=== PATIENT | male | born 1945 | race Caucasian/White ===

== ENCOUNTER 2017-04-23 08:32 | Observation (INO) ==
[2017-04-23] MEDS ORDERED: Aspirin 81 MG TAB.CHEW PO ONE (08:56)
--- NOTE | 2017-04-23 09:12 | Emergency Department Note ---
Disposition Clinical Impression: Dyspnea on exertion, Hypoxia, ACS (acute coronary syndrome) Disposition: Admitted As Inpatient Condition: Good Time of Disposition: 10:14 General Adult HPI - General Chief complaint: ED Shortness of Breath/Dyspnea Stated complaint: SOB Time Seen by Provider: 04/23/17 08:43 Source: patient Limitations: no limitations Nursing Notes Reviewed: Yes Vital Signs Reviewed: Yes - History of Present Illness HPI Narrative: 72-year-old male presenting to the emergency department with chief complaint of shortness of breath. Patient has a significant past medical history of CHF and had a pacemaker placed mid February. Patient states this morning when he woke up he noticed his oxygen saturation to be 90%. He is normal as around 98%. Patient does not wear oxygen at home but does wear CPAP overnight. Patient is compliant with this. Patient has history of A. fib with RVR and multiple ablations and cardioversions. A pacemaker was placed due to decreased ejection fraction of approximately 35%. Patient currently on Xarelto. Patient does complain of left-sided incisional pain that comes and goes. This pain does not radiate. Patient states while walking into the emergency department waiting room he became dyspneic. This is a new symptom that has not occurred in the past. Pain Scale: 8 - Related Data Home Medications Medication Instructions Recorded Confirmed Allopurinol [Zyloprim] 100 mg PO BID 05/01/15 04/23/17 Aspirin [Adult Low Dose Aspirin EC] 81 mg PO QAM 05/01/15 04/23/17 Bimatoprost [Lumigan] 1 drop BOTH EYES DAILY 05/01/15 04/23/17 Brimonidine Tartrate [Alphagan P] 1 drop BOTH EYES TID 05/01/15 04/23/17 Dorzolamide [Trusopt] 1 drop BOTH EYES TID 05/01/15 04/23/17 Furosemide [Lasix] 40 mg PO BID 05/01/15 04/23/17 Losartan [Cozaar] 100 mg PO DAILY 05/01/15 04/23/17 Metformin [Glucophage] 1,000 mg PO BID 05/01/15 04/23/17 Multivitamin [Multi-Day Vitamins] 1 tab PO DAILY 05/01/15 04/23/17 Potassium Chloride [Klor-Con 10 meq PO DAILY 05/01/15 04/23/17 Sprinkle] Simvastatin [Zocor] 20 mg PO HS 05/01/15 04/23/17 Metoprolol XL (24 HR) Succ [Toprol 50 mg PO QAM 07/21/15 04/23/17 Xl] Previous Rx's Medication Instructions Recorded Rivaroxaban [Xarelto] 20 mg PO DAILY #0 03/08/17 Allergies Allergy/AdvReac Type Severity Reaction Status Date / Time promethazine [From Phenergan] Allergy Intermediate Rash Verified 04/23/17 10:13 All systems ED: reviewed and negative except as stated. Constitutional: Reports: weakness. Denies: fever, chills Eyes: Reports: as per HPI ENT ED: Reports: as per HPI Cardiovascular: Reports: dyspnea on exertion, paroxysmal nocturnal dyspnea. Denies: chest pain, palpitations Respiratory: Reports: dyspnea. Denies: cough, wheezes, hemoptysis Gastrointestinal: Reports: abdominal pain. Denies: nausea, vomiting Genitourinary: Reports: as per HPI Musculoskeletal: Reports: as per HPI Integumentary: Denies: rash, lesions Neurological: Reports: as per HPI Psychiatric: Reports: as per HPI Endocrine: Reports: fatigue Hematological/Lymphatic: Reports: as per HPI Allergic/Immunologic: Reports: as per HPI Past Medical History - Past Medical History Attestation: Yes The following information was validated with the patient. Medical history: Reports: arthritis, atrial fibrillation, cardiomyopathy, CHF, diabetes, glaucoma, hyperlipidemia, hypertension, SVT, other Surgical history: Reports: cholecystectomy, other Psychiatric history: Reports: no psych history - Social History Smoking Status: Former smoker Smokeless Tobacco Status: No Alcohol use: Reports: none Drug use: Reports: none Physical Exam - General Limitations: no limitations General appearance: alert, in no apparent distress - Head Head exam: atraumatic, normocephalic - Eye Eye exam: Present: normal appearance - Chest Chest inspection: Present: normal inspection, symmetric chest wall rise, other ( 2 cm long well-healed incisional site noted on the left anterior chest). Absent : tenderness - Respiratory Respiratory exam: Present: normal lung sounds bilaterally. Absent: respiratory distress, wheezes - Cardiovascular Cardiovascular exam: Present: regular rate, normal heart sounds - Abdominal Exam Abdominal exam: Present: soft, Non-Tender. Absent: distention, guarding, rebound - Extremities Exam Extremities exam: Present: normal inspection, full ROM. Absent: pedal edema - Neurological Exam Neurological exam: Present: alert, oriented X3 - Psychiatric Psychiatric exam: Present: normal affect, normal mood - Skin Skin exam: Present: warm, intact Course Course Narrative: 72-year-old male presenting to the emergency department for chief complain of exertional dyspnea. On exam patient has oxygen saturations in the low 90s. According to the patient has normal is 98% or higher. Patient recently had a pacemaker placed in mid February. It was placed for decreased ejection fraction. Patient also has a strong history of A. fib with RVR. Chest pain workup was ordered. We will determine disposition and plan all results returned. Patient currently stable in the room and no fever at this time. - Reevaluation(s) Reevaluation #1: All the patient's lab work has returned and is within normal limits. Due to his heart score being 4 we will admit the patient at this time. Patient still currently stable in the room. Stable vital signs and mild hypoxia oxygen saturation are 94%. Time: 09:59 Reevaluation #2: Patient accepted by the hospitalist aRmiro Oro. Time: 10:14 Vital Signs Temperature 0 F L 04/23/17 08:34 Pulse Rate 81 04/23/17 08:34 Respiratory Rate 18 04/23/17 08:34 Blood Pressure 139/92 04/23/17 08:34 O2 Sat by Pulse Oximetry 93 04/23/17 08:34 Temperature 98.2 F 04/23/17 09:23 Pulse Rate 77 04/23/17 10:12 Respiratory Rate 18 04/23/17 10:24 Blood Pressure 136/103 04/23/17 10:24 O2 Sat by Pulse Oximetry 93 04/23/17 10:12 Oxygen Delivery Oxygen Delivery Nasal Cannula Medical Decision Making - Medical Records Medical records reviewed: Yes I reviewed the patient's medical records. - Lab Data Lab results reviewed: Yes I reviewed the patient's lab results. Result diagrams: 04/23/17 09:17 04/23/17 09: Lab Results 04/23/17 04/23/17 04/23/17 Range/Units : 09: 09:17 WBC 9.6 (4.3-11.1) K/mcL RBC 4.13 L (4.19-5.50) M/mcL Hgb 12.0 L (12.9-16.9) g/dL Hct 38.3 (37.5-50.1) % MCV 92.7 (83.0-100.0) fL MCH 29.1 (28.0-33.3) pg MCHC 31.3 L (31.6-35.5) g/dL RDW 16.4 H (11.5-14.5) % Plt Count 198 (140-400) K/mcL MPV 10.5 (9.4-12.4) fL Immature Gran % 0.4 (0-4) % Seg Neutrophils % 80.9 % Lymphocytes % 9.1 % Monocytes % 6.8 % Eosinophils % 2.3 % Basophils % 0.5 % Neutrophils # 7.7 (1.6-8.9) K/mcL Lymphocytes # 0.9 (0.6-4.6) K/mcL Monocytes # 0.7 (0.0-1.3) K/mcL Eosinophils # 0.2 (0.0-0.6) K/mcL Basophils # 0.1 (0.0-0.2) K/mcL Immature Plt Fraction 3.8 (1.1-6.1) % Sodium 140 (136-145) mEq/L Potassium 3.7 (3.5-4.5) mEq/L Chloride 104 (98-109) mEq/L Carbon Dioxide 27 (19-29) mEq/L BUN 20 (8-26) mg/dL Creatinine 1.08 (0.72-1.25) mg/dL Est GFR ( Amer) > 60 (> 60) Est GFR (Non-Af Amer) > 60 (> 60) BUN/Creatinine Ratio 19 (6-26) Glucose 116 H (70-99) mg/dL Calculated Osmolality 294 (280-300) Calcium 9.0 (8.6-10.8) mg/dL Troponin I 0.01 (0-0.03) ng/mL - Radiology Data Radiology results reviewed: Yes I reviewed the patient's radiology results. - EKG Data EKG #1 EKG attestation: Yes I reviewed and interpreted this EKG. EKG results narrative: 89 bpm. Normal axis. QRS 113, QTC 440. Sinus rhythm with occasional premature beats Q wave noted in lead III. Non-specific ST-T changes. Compared to prior EKG completed on 03/07/17 with no new acute changes.
[2017-04-23 09:25] LABS: Basophils # 0.1 K/mcL (0.0-0.2); Basophils % 0.5 %; Eosinophils # 0.2 K/mcL (0.0-0.6); Eosinophils % 2.3 %; Hematocrit 38.3 % (37.5-50.1); Immature Granulocytes % 0.4 % (0-4); Immature Platelets 3.8 % (1.1-6.1); Lymphocytes # 0.9 K/mcL (0.6-4.6); Lymphocytes % 9.1 %; Mean Corpuscular HGB Conc 31.3 g/dL (31.6-35.5); Mean Corpuscular Hemoglobin 29.1 pg (28.0-33.3); Mean Corpuscular Volume 92.7 fL (83.0-100.0); Mean Platelet Volume 10.5 fL (9.4-12.4); Monocytes # 0.7 K/mcL (0.0-1.3); Monocytes % 6.8 %; Neutrophils # 7.7 K/mcL (1.6-8.9); Platelet Count 198 K/mcL (140-400); Red Blood Count 4.13 M/mcL (4.19-5.50); Red Cell Distribution Width 16.4 % (11.5-14.5); Segmented Neutrophils % 80.9 %
[2017-04-23 09:38] LABS: BUN/Creatinine Ratio 19 (6-26); Blood Urea Nitrogen 20 mg/dL (8-26); Carbon Dioxide 27 mEq/L (19-29); Chloride 104 mEq/L (98-109); Glucose 116 mg/dL (70-99); Osmolality,Calculated 294 (280-300); Potassium 3.7 mEq/L (3.5-4.5); Sodium 140 mEq/L (136-145); eGFR For African Americans > 60 (> 60); eGFR For Non-African Americans > 60 (> 60)
--- NOTE | 2017-04-23 10:29 | Emergency Department Note ---
START Narrative - START START: I examined this patient and my medical decision-making was reviewed with the emergency medicine resident. I agree with the documented findings, disposition and treatment plan as described except to the extent set forth below. Patient seen with emergency medicine resident Dr. Suki Hua, Please see a copy of his note for details of the H&P, ED evaluation, management and disposition. I have independently evaluated the patient and confirmed appropriate portions of the history and physical exam. Briefly: 72-year-old male history of atrial fibrillation AICD placed in February at [facility] secondary to low ejection fraction approximately 35%. Because the emergency department with no exertional dyspnea or dyspnea on exertion and fatigue. Chest is clear no pedal edema EKG shows sinus rhythm with occasional premature beats noted ischemic changes compared to old EKG. Chemistry panel CBC within normal limits troponin negative chest x- ray read as mild cardiomegaly. Due to the new-onset of the dyspnea on exertion acute coronary syndrome is still a differential patient will be admitted patient accepted by hospitalist provided 30 minutes critical care service for this patient.
[2017-04-23] MEDS ORDERED: Acetaminophen 325 MG TABLET PO PRN (11:51)
[2017-04-23] MEDS ORDERED: *HR* Morphine 2 MG/ML SYRINGE IVP PRN (11:51)
[2017-04-23] MEDS ORDERED: Ondansetron 4 MG/2 ML VIAL IVP PRN (11:51)
[2017-04-23] MEDS ORDERED: Naloxone 0.4 MG/ML INJ IVP PRN (11:51)
[2017-04-23] MEDS ORDERED: *HR* HYDROcodone/Acet 5/325 mg TABLET PO PRN (11:51)
[2017-04-23] MEDS ORDERED: Furosemide 40 MG/4 ML VIAL IVP ONE (11:55)
[2017-04-23] MEDS ORDERED: D5% in Water 1,000 ML IVC PRN (12:02)
[2017-04-23] MEDS ORDERED: *HR* Dextrose 50 % in Water (Syg) 50 ML SYRINGE IVP PRN (12:02)
[2017-04-23] MEDS ORDERED: Dextrose Gel 15 GM PO PRN ×2 (12:02)
[2017-04-23] MEDS ORDERED: Ipratropium/Albuterol Neb 3 ML IH PRN (12:04)
[2017-04-23] MEDS: (Bimatoprost [Lumigan] 1 DROP) OP SCH (12:39)
[2017-04-23] MEDS: Pantoprazole 40 MG VIAL IVP SCH (12:40)
[2017-04-23] MEDS: Metoprolol XL (24 HR) Succ 50 MG TAB.ER.24H PO SCH (12:40)
[2017-04-23] MEDS: *HR* Rivaroxaban 10 MG TABLET PO SCH (12:40)
[2017-04-23] MEDS: Multivit/Ca/Min/Fe/FA 1 TAB TABLET PO SCH (12:40)
[2017-04-23] MEDS: Dorzolamide OPTH 10 ML BOTTLE BOTH EYES SCH ×2 (15:10→19:49)
--- NOTE | 2017-04-23 16:02 | Internal Med History&Physical ---
<SimaRamiro holt - Last Filed: 04/23/17 16:46> Date of Encounter: 04/23/17 Time of Encounter: 10:30 Assessment and Plan (1) CHF exacerbation Current visit: Yes Status: Acute Patient presents with SOB and dyspnea most likely due to acute exacerbation of CHF. Pedal edema present bilaterally in LEs. 40 mg IVP lasix ordered. 1.5L daily fluid restriction. Supplemental O2 with titration if SpO2 <92% and continuous SpO2 monitoring. Continuous cardiac telemetry. Monitor I&O and daily weight. DuoNebs Q6 PRN. Monitor patient's cardiac and respiratory status closely. Qualifiers: Congestive heart failure type: unspecified congestive heart failure type Qualified Code(s): I50.9 - Heart failure, unspecified (2) Dyspnea on exertion Current visit: Yes Status: Acute Patient presents with acute SOB and dyspnea with exertion that he reports as transient. Denies hx of DVT/PE. Most likely exacerbation of CHF. Supplemental O2 with titration and continuous SpO2 monitoring. DuoNebs Q6 PRN. CPAP at night. 1.5L daily fluid restriction. (3) Glaucoma Current visit: Yes Status: Chronic Hx of chronic glaucoma. Continue Lumigan, Alphagan, and Trusopt drops daily as prescribed. Qualifiers: Glaucoma type: unspecified Laterality: unspecified laterality Qualified Code(s): H40.9 - Unspecified glaucoma (4) HLD (hyperlipidemia) Current visit: Yes Status: Chronic Hx of chronic HLD. Lipid panel ordered in a.m. labs. Continue simvastatin. Qualifiers: Hyperlipidemia type: pure hypercholesterolemia Qualified Code(s): E78.00 - Pure hypercholesterolemia, unspecified; E78.0 - Pure hypercholesterolemia (5) HTN (hypertension) Current visit: Yes Status: Chronic Hx of chronic HTN. Monitor patient and VS and continue Cozaar and metoprolol. Qualifiers: Hypertension type: essential hypertension Qualified Code(s): I10 - Essential (primary) hypertension (6) Atrial fibrillation Current visit: Yes Status: Chronic Hx of chronic atrial fibrillation w/wo RVR. Currently stable. Patient had AICD placement on 03/07/17. Continuous cardiac telemetry. Qualifiers: Atrial fibrillation type: chronic Qualified Code(s): I48.2 - Chronic atrial fibrillation (7) 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 Current visit: Yes Status: Chronic Hx of chronic diabetes controlled with oral anti-hyperglycemic medications. Hold oral meds and administer low-dose correction sliding scale insulin and hypoglycemic protocol. BG monitoring ACHS. A1c ordered in a.m. labs. 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 Monitor for signs of bleeding. Internal Medicine - H&P: HPI Chief complaint: SOB/Dyspnea Admitted From: Emergency Dept Plans for Post Hospital Care: Home History of present illness: Mr. Palafox is a 72 year old male with medical history of arthritis, atrial fibrillation, cardiomyopathy, CHF, diabetes controlled with oral antihyperglycemic medications, glaucoma, HLD, HTN, and SVT presents from the ED with chief complaint of shortness of breath and dyspnea for the past day. Patient states O2 is usually 98% but today was 90%. He states he uses CPAP but no regular home O2. Hx of atrial fibrillation with multiple ablations and cardioversions. Pacemaker/AICD placed on 03/07/17. LVEF was 35% at time of placement. Patient is currently anticoagulated on Xarelto. Patient reports transient SOB and dyspnea but denies chest pain, palpitations, changes in vision , weakness, fatigue, numbness, tingling, recent illness, hx of DVT/PE, fever, chills, abdominal pain, unusual bleeding, dizziness, lightheadedness, nausea, vomiting, pre-syncope, or syncope. On admission, patient's vital signs include temperature 98.2 F, heart rate of 81 bpm, respiratory rate of 18, BP of 139/92, and SPO2 93% on 2 L nasal cannula. Pertinent abnormal labs include RBC of 4.13 , Hgb 12.0, glucose of 116. Initial troponin 0.01. 2-View CXR today shows no acute abnormality, infiltrate, consolidation, pneumothorax, or pleural effusion. EKG today shows normal axis with sinus rhythm with occasional premature beats Q-wave noted in lead III. Non-specific T-wave changes. No acute changes from EKG on 03/07/17. Upon assessment, patient is alert and oriented 3 and states he is not experiencing shortness of breath at this time. Heart rate is RRR. Lungs are clear bilaterally to auscultation. Mr. Palafox is at high risk for further morbidity due to current symptoms, hx of atrial fibrillation, history of other risk factors and will be placed as observation status. Time spent with patient and family >40 minutes. Past Med Surg Social Fam HX - Past Medical History Source: patient, old records reviewed, obtained from family Medical history: arthritis, atrial fibrillation, cardiomyopathy, CHF, diabetes, glaucoma, hyperlipidemia, hypertension, SVT, other Psychiatric history: no psych history - Past Surgical History Surgical History: cholecystectomy, other - Social History Smoking Status: Former smoker Packs per day: 07/26 PPD - reports quitting 53 years ago Smokeless Tobacco Status: No Alcohol use: none Drug use: none Current living situation: Home Activity Level: Independent ambulation Recent Out of Country Travel Within the Last 8 Weeks: No Exposure or Possible Exposure to Illness During Travel: No - Family History Mother Adopted: No Race: Family Member Ethnicity: Non- Living Status: Age at : 54 Cause of : NH Hx Family Cardiac Disorders: Yes (NH, HTN, HD) Father Race: Family Member Ethnicity: Non- Living Status: Age at : 65 Cause of : Leukemia Hx Family Cancer: Yes (Leukemia) Brother Race: Family Member Ethnicity: Non- Living Status: Age at : 29 Cause of : Complications from flu Internal Medicine - H&P: Meds Allopurinol [Zyloprim] 100 mg PO BID 05/01/15 [History] Aspirin [Adult Low Dose Aspirin EC] 81 mg PO QAM 05/01/15 [History] Bimatoprost [Lumigan] 1 drop BOTH EYES DAILY 05/01/15 [History] Brimonidine Tartrate [Alphagan P] 1 drop BOTH EYES TID 05/01/15 [History] Dorzolamide [Trusopt] 1 drop BOTH EYES TID 05/01/15 [History] Furosemide [Lasix] 40 mg PO BID 05/01/15 [History] Losartan [Cozaar] 100 mg PO DAILY 05/01/15 [History] Metformin [Glucophage] 1,000 mg PO BID 05/01/15 [History] Multivitamin [Multi-Day Vitamins] 1 tab PO DAILY 05/01/15 [History] Potassium Chloride [Klor-Con Sprinkle] 10 meq PO DAILY 05/01/15 [History] Simvastatin [Zocor] 20 mg PO HS 05/01/15 [History] Metoprolol XL (24 HR) Succ [Toprol Xl] 50 mg PO QAM 07/21/15 [History] Rivaroxaban [Xarelto] 20 mg PO DAILY #0 03/08/17 [Rx] 3 Allergy/AdvReac Type Severity Reaction Status Date / Time promethazine [From Phenergan] Allergy Intermediate Rash Verified 04/23/17 10:13 All Systems PM: A 10-system review of systems was performed and is negative for pertinent findings except as documented above in the HPI. - Constitutional Constitutional: no chills, no fever(s), no night sweats - EENT Eyes: no change in vision, no discharge, no pain, no photophobia Ears: no ear discharge, no ear pain, no tinnitus Nose, mouth and throat: no dysphagia, no nasal discharge, no neck pain, no sore throat - Breasts Breasts: as per HPI - Cardiovascular Cardiovascular ROS IM: as per HPI, dyspnea, dyspnea on exertion, no chest pain, no diaphoresis, no lightheadedness, no palpitations, no syncope - Respiratory Respiratory: as per HPI, dyspnea, dyspnea on exertion - Gastrointestinal Gastrointestinal: no abdominal pain, no diarrhea, no hematemesis, no hematochezia, no melena, no nausea, no vomiting - Genitourinary Genitourinary ROS male: as per HPI - Musculoskeletal Musculoskeletal ROS IM: no numbness, no tingling - Integumentary Integumentary IM: no rash, no unusual bruising - Neurological Neurological ROS: no confusion, no convulsions, no focal weakness, no numbness, no tingling, no tremor(s) - Psychiatric Psychiatric: as per HPI - Endocrine Endocrine IM: as per HPI - Hematologic/Lymphatic Hematologic/Lymphatic: no easy bruising - Allergic/Immunologic Allergic/Immunologic: as per HPI - Constitutional Vitals: Temp Pulse Resp BP Pulse Ox 97.9 F 64 12 107/76 97 04/23/17 15:53 04/23/17 15:53 04/23/17 15:53 04/23/17 15:53 04/23/17 15:53 General appearance: Present: cooperative, A&O X 3, pleasant, no acute distress, obese, answers questions appropriately - Head Head exam: Present: atraumatic, normocephalic - Eye Eye exam: Present: PERRL, conjuntiva pink, sclera anicteric Pupils: Present: PERRL - ENT ENT exam: Present: normal exam, normal external ear exam - Neck Neck exam general surgery: Present: supple, trachea midline. Absent: lymphadenopathy - Respiratory Respiratory exam: Present: CTAB. Absent: accessory muscle use, rales, rhonchi, wheezes - Cardiovascular Cardiovascular exam: Present: RRR, +S1, +S2. Absent: diastolic murmur, gallop, rubs, systolic murmur - GI/Abdominal GI/Abdominal exam: Present: normal bowel sounds, soft, no peritoneal signs. Absent: distended, tenderness - Rectal Rectal exam: Present: deferred - Additional comments: exam deferred. - Extremities Exam Extremities exam: Present: warm, radial pulses palpable and symmetrical. Absent : calf tenderness, cyanotic, pedal edema - Back Exam Back exam: Present: normal inspection - Neurological Exam Neurological exam: Present: CN II-XII intact, oriented X3, no focal deficits. Absent: pronater drift, facial droop, speech deficit - Psychiatric Psychiatric exam: Present: normal affect, normal mood - Skin Skin exam: Present: dry, intact Internal Med - H&P Results - Labs CBC & Chem 7: 04/23/17 09:17 04/23/17 09:17 Labs: Cardiac Enzymes 04/23/17 Range/Units 15:08 Troponin I 0.02 (0-0.03) ng/mL - EKG Data EKG shows normal: sinus rhythm - EKG Data When compared to previous EKG: there is no significant change EKG comments: 04/23/17 16:23 89 bpm. Normal axis. QRS 113, QTC 440. Sinus rhythm with occasional premature beats Q wave noted in lead III. Non-specific ST-T changes. Compared to prior EKG completed on 03/07/17 with no new acute changes. - Diagnostic Studies Chest x-ray Additional comments: Impressions Chest X-Ray 04/23/17 09:13 IMPRESSION: No acute abnormality. D/ / Az Rosales MD / Az Rosales MD Interpreting Provider: Az Rosales MD <Jan Cox - Last Filed: 04/23/17 17:00> Date of Encounter: 04/23/17 Assessment and Plan (1) Acute respiratory failure with hypoxia Current visit: Yes Status: Acute (2) CHF exacerbation Current visit: Yes Status: Acute Qualifiers: Congestive heart failure type: systolic Qualified Code(s): I50.23 - Acute on chronic systolic (congestive) heart failure Internal Medicine - H&P: HPI History of present illness: Mr. Palafox is a 72 year old male All Systems PM: A 10-system review of systems was performed and is negative for pertinent findings except as documented above in the HPI. - Constitutional Vitals: Temp Pulse Resp BP Pulse Ox 97.9 F 64 12 107/76 97 04/23/17 15:53 04/23/17 15:53 04/23/17 15:53 04/23/17 15:53 04/23/17 15:53 Internal Med - H&P Results - Labs CBC & Chem 7: 04/23/17 09:17 04/23/17 09:17 Labs: Cardiac Enzymes 04/23/17 Range/Units 15:08 Troponin I 0.02 (0-0.03) ng/mL - Attending Attestation I have personally performed a face to face evaluation on this patient. I have reviewed and agree with the care plan. History and Exam by me shows: 72 y/o male with chronic systolic heart failure and recent AICD placement in February presented to ED with increasing dyspnea and weight gain. Unable to sleep at night due to dyspnea. No CP. No fever or chills. Hx of a fib with multiple ablations. Currently feeling better after receiving IV Lasix. Exam Alert. Comfortable in chair Mucus membranes moist Heart irreg currently. Lungs with bibasilar rales Abd soft Edema present I/P 1. Acute hypoxic resp failure related to exac CHF 2. Acute ecac systolic CHF 3. AICD Interrogate device CPAP at night as at home Diurese If stable anticipate d/c tomorrow.
--- NOTE | 2017-04-23 16:06 | Event Note ---
Date of Encounter: 04/23/17 Time of Encounter: 15:30 - Cardiology Event Note [employer] single chamber ICD device interrogation with normal functioning device. Increased thoracic impendence noted. One episode of non-sustained ventricular tachycardia noted 04/17/17, lasted 3 seconds. No treatments delivered. Results communicated to .
[2017-04-23] MEDS: Insulin LISPRO 300 UNITS/3 ML VIAL SQ SCH (16:42)
[2017-04-23] MEDS ORDERED: Insulin LISPRO 300 UNITS/3 ML VIAL SQ SCH (21:00)
[2017-04-24 04:32] LABS: Basophils # 0.1 K/mcL (0.0-0.2); Basophils % 0.6 %; Eosinophils # 0.6 K/mcL (0.0-0.6); Eosinophils % 7.9 %; Hematocrit 36.3 % (37.5-50.1); Hemoglobin 11.3 g/dL (12.9-16.9); Immature Granulocytes % 0.5 % (0-4); Lymphocytes % 12.9 %; Mean Corpuscular HGB Conc 31.1 g/dL (31.6-35.5); Mean Corpuscular Hemoglobin 28.7 pg (28.0-33.3); Mean Corpuscular Volume 92.1 fL (83.0-100.0); Mean Platelet Volume 10.8 fL (9.4-12.4); Monocytes # 0.6 K/mcL (0.0-1.3); Monocytes % 7.5 %; Neutrophils # 5.5 K/mcL (1.6-8.9); Platelet Count 206 K/mcL (140-400); Red Blood Count 3.94 M/mcL (4.19-5.50); Red Cell Distribution Width 16.3 % (11.5-14.5); Segmented Neutrophils % 70.6 %
[2017-04-24 04:35] LABS: INR 3.2; Prothrombin Time 34.8 Seconds (9.4-12.1)
[2017-04-24 04:37] LABS: Activated Partial Thrombo Time 40.4 Seconds (26.0-36.0)
[2017-04-24 04:40] LABS: Hemoglobin A1C 5.4 %
[2017-04-24 04:44] LABS: Alanine Aminotransferase 13 Units/L (0-55); Albumin 3.7 g/dL (3.5-5.0); Albumin/Globulin Ratio 1.2 (1.1-2.2); Alkaline Phosphatase 59 Units/L (38-126); Aspartate Amino Transferase 21 Units/L (5-34); BUN/Creatinine Ratio 21 (6-26); Bilirubin,Total 2.5 mg/dL (0.2-1.2); Blood Urea Nitrogen 25 mg/dL (8-26); Calcium 8.8 mg/dL (8.6-10.8); Carbon Dioxide 27 mEq/L (19-29); Chloride 104 mEq/L (98-109); Chol/HDL Ratio 3.9 (0-4.9); Cholesterol 81 mg/dL (< 200); Globulin 3.2 g/dL (2.4-3.5); Glucose 112 mg/dL (70-99); HDL Cholesterol 21 mg/dL (40-59); LDL Cholesterol,Calculated 49 mg/dL (0-99); Magnesium 2.2 mg/dL (1.6-2.6); Osmolality,Calculated 295 (280-300); Potassium 3.8 mEq/L (3.5-4.5); Sodium 140 mEq/L (136-145); Total Protein 6.9 g/dL (6.0-8.3); Triglycerides 54 mg/dL (< 150); eGFR For African Americans > 60 (> 60); eGFR For Non-African Americans > 60 (> 60)
[2017-04-24] MEDS: Insulin LISPRO 300 UNITS/3 ML VIAL SQ SCH ×2 (08:24→11:32)
[2017-04-24] MEDS: Pantoprazole 40 MG VIAL IVP SCH (08:28)
[2017-04-24] MEDS: *HR* Rivaroxaban 10 MG TABLET PO SCH (08:28)
[2017-04-24] MEDS: Metoprolol XL (24 HR) Succ 50 MG TAB.ER.24H PO SCH (08:28)
[2017-04-24] MEDS: Multivit/Ca/Min/Fe/FA 1 TAB TABLET PO SCH (08:28)
[2017-04-24] MEDS: (Bimatoprost [Lumigan] 1 DROP) OP SCH (08:29)
[2017-04-24] MEDS: Dorzolamide OPTH 10 ML BOTTLE BOTH EYES SCH (08:37)
[2017-04-24] MEDS ORDERED: Furosemide 40 MG TABLET PO SCH (09:00)
[2017-04-24] MEDS ORDERED: Aspirin Enteric Coated 81 MG Tablet PO SCH (09:00)
--- NOTE | 2017-04-24 09:55 | Discharge Summary ---
<Sudheer Townsend - Last Filed: 04/24/17 09:53> Date of Encounter: 04/24/17 Time of Encounter: 09:53 - Discharge Diagnosis (1) Acute respiratory failure with hypoxia Priority: Primary Status: Acute (2) Acute on chronic systolic and diastolic heart failure, NYHA class 2 Priority: Secondary Status: Acute (3) Atrial fibrillation Priority: Secondary Status: Chronic Qualifiers: Atrial fibrillation type: chronic Qualified Code(s): I48.2 - Chronic atrial fibrillation (4) SHANNON (obstructive sleep apnea) Priority: Secondary Status: Acute (5) 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 Priority: Secondary Status: Chronic Qualifiers: 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 type: type 2 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 complication status: with unspecified complications 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 marine oil terminal superintendent insulin use: without senior living use Qualified Code(s): E11.8 - Type 2 diabetes mellitus with unspecified complications (6) DVT prophylaxis Priority: Secondary Status: Acute (7) S/P ICD (internal cardiac defibrillator) procedure Priority: Secondary Status: Acute (8) Glaucoma Priority: Secondary Status: Chronic Qualifiers: Glaucoma type: unspecified Laterality: unspecified laterality Qualified Code(s): H40.9 - Unspecified glaucoma - Discharge Medications Home Medications: Allopurinol [Zyloprim] 100 mg PO BID 05/01/15 [History] Aspirin [Adult Low Dose Aspirin EC] 81 mg PO QAM 05/01/15 [History] Bimatoprost [Lumigan] 1 drop BOTH EYES DAILY 05/01/15 [History] Brimonidine Tartrate [Alphagan P] 1 drop BOTH EYES TID 05/01/15 [History] Dorzolamide [Trusopt] 1 drop BOTH EYES TID 05/01/15 [History] Furosemide [Lasix] 40 mg PO BID 05/01/15 [History] Losartan [Cozaar] 100 mg PO DAILY 05/01/15 [History] Metformin [Glucophage] 1,000 mg PO BID 05/01/15 [History] Multivitamin [Multi-Day Vitamins] 1 tab PO DAILY 05/01/15 [History] Potassium Chloride [Klor-Con Sprinkle] 10 meq PO DAILY 05/01/15 [History] Simvastatin [Zocor] 20 mg PO HS 05/01/15 [History] Metoprolol XL (24 HR) Succ [Toprol Xl] 50 mg PO QAM 07/21/15 [History] Rivaroxaban [Xarelto] 20 mg PO DAILY #0 03/08/17 [Rx] Allergies/Adverse Reactions: 3 Allergy/AdvReac Type Severity Reaction Status Date / Time promethazine [From Phenergan] Allergy Intermediate Rash Verified 04/23/17 10:13 Date of admission: 04/23/17 10:19 Primary care physician: Ramu Yousif MD Consults: 04/23/17 11:54 Consult to Manager Information [CONS] Routine Reason for SW Consult: Assess patient for home O2 needs and other home health needs for post-discharge planning 04/23/17 12:19 Consult to Respiratory Therapy [CONS] Routine Reason for Consult: Home CPAP Call Completed: No Discharging clinician: Sudheer Townsned Anticipated date of discharge: 04/24/17 - Patient Status Disposition: Home, Self-Care Condition: Good Functional capacity at discharge: independent ambulation Overall status at discharge: patient is progressing back to baseline - Discharge Instructions Instructions: Heart Failure (DC), Low Sodium Diet (DC), Fluid Restriction (DC) Follow Up With: Ramu Yousif MD [Primary Care Provider] - (Web requested for appointment 08/10) - Diet and Activity Activity: increase activity as tolerated Diet: diabetic diet, low fat, low cholesterol, low salt diet, other (fluid resctriction of 2L ) Hospital course: Mr. Palafox is a 72 year old male presented with cc of sob of 24 hours. HIs O2 sat at home was 90%. Patient has pacemaker/AICD placed in february for ischemic cardiomyopathy LVEF 35%. Patient denied CP, palpitations, changes in vision. CXR did not show any acute abnormalaties. Troponin and EKG WNL. Patient had pedal edema in b/l LE. He was given lasix IV and supplemental O2. Patient was diuresed successfully and weaned off O2 this morning. Cardiology was contacted to assess patient's AICD which did not show any firings. He states he drinks 3L of fluids daily and has a low salt intake. Patient was educated on CHF , fluid restricted diet, elevation of legs when going to bed, daily exercise. Patient is able to ambulate on his own, tolerating his diet, free of presenting symptoms. Patient is ready for discharge. Plan: continue home medications. Fluid restricted diet of 2000 ml per day. Low -salt diet. Exercise 30 minutes daily 5 times a week. Elevate lower extremities at night when going to bed. - Time Spent with Patient Total time spent providing and/or coordinating discharge services: - Constitutional Vitals: Temp Pulse Resp BP Pulse Ox 97.6 F 60 12 115/81 97 04/24/17 06:26 04/24/17 06:26 04/24/17 06:26 04/24/17 06:26 04/24/17 08:41 General appearance: Present: cooperative, A&O X 3, pleasant, no acute distress, obese, answers questions appropriately - Head Head exam: Present: atraumatic, normocephalic - Eye Eye exam: Present: PERRL, conjuntiva pink, sclera anicteric - Neck Neck exam general surgery: Present: supple, trachea midline. Absent: lymphadenopathy - Respiratory Respiratory exam: Present: CTAB, rales ( minor bibasilar crackles). Absent: accessory muscle use, rhonchi, wheezes - Cardiovascular Cardiovascular exam: Present: irregular rhythm. Absent: diastolic murmur, gallop, rubs, systolic murmur - GI/Abdominal GI/Abdominal exam: Present: normal bowel sounds, soft, no peritoneal signs. Absent: distended, tenderness - Extremities Exam Extremities exam: Present: pedal edema (1+), warm, radial pulses palpable and symmetrical. Absent: calf tenderness, cyanotic - Neurological Exam Neurological exam: Present: CN II-XII intact, oriented X3, no focal deficits. Absent: pronater drift, facial droop, speech deficit - Skin Skin exam: Present: dry, intact <Jan Cox - Last Filed: 04/24/17 12:42> Date of Encounter: 04/24/17 - Discharge Diagnosis (1) Acute respiratory failure with hypoxia Priority: Primary Status: Acute (2) CHF exacerbation Priority: Primary Status: Acute Qualifiers: Congestive heart failure type: systolic Qualified Code(s): I50.23 - Acute on chronic systolic (congestive) heart failure (3) Atrial fibrillation Status: Chronic Qualifiers: Atrial fibrillation type: chronic Qualified Code(s): I48.2 - Chronic atrial fibrillation (4) 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 Status: Chronic Qualifiers: 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 type: type 2 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 complication status: without complication 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 marine oil terminal superintendent insulin use: without marine oil terminal superintendent use Qualified Code(s): E11.9 - Type 2 diabetes mellitus without complications (5) Glaucoma Status: Chronic Qualifiers: Glaucoma type: unspecified Laterality: bilateral Qualified Code(s): H40.9 - Unspecified glaucoma (6) HLD (hyperlipidemia) Priority: Secondary Status: Chronic Qualifiers: Hyperlipidemia type: mixed hyperlipidemia Qualified Code(s): E78.2 - Mixed hyperlipidemia (7) HTN (hypertension) Priority: Secondary Status: Chronic Qualifiers: Hypertension type: essential hypertension Qualified Code(s): I10 - Essential (primary) hypertension Procedures/tests Complete & Pending: Procedures Performed prior 72 hours Category Date Time Status ECG 12 lead ECG [ECG] Routine Y 04/23/17 08:45 Completed Date of admission: 04/23/17 10:19 Primary care physician: Ramu Yousif MD Consults: 04/23/17 11:54 Consult to Manager Information [CONS] Routine Reason for SW Consult: Assess patient for home O2 needs and other home health needs for post-discharge planning 04/23/17 12:19 Consult to Respiratory Therapy [CONS] Routine Reason for Consult: Home CPAP Call Completed: No Hospital course: Mr. Palafox is a 72 year old male - Time Spent with Patient Total time spent providing and/or coordinating discharge services: 38min - Constitutional Vitals: Temp Pulse Resp BP Pulse Ox 98.4 F 77 12 134/100 98 04/24/17 10:08 04/24/17 10:08 04/24/17 10:08 04/24/17 10:08 04/24/17 10:33 - Attending Attestation I examined this patient and my medical decision-making was reviewed with the Resident Physician on 04/24/17. I agree with the documented findings, disposition and treatment plan as described except to the extent set forth below. Mr. Palafox has been in observation for acute hypoxic resp failure due to acute exac CHF. He is now afebrile with stable vitals. He is clinically much improved. He feels ready for discharge home. He has ambulated in the hallway and does not need oxygen to go home. Exam Alert. Comfortable Mucus membranes dry Heart not tachy Lungs clearer today. Abd soft Edema improved as well. Plan D/C home today. Follow up with PCP.
[2017-04-24 10:16] VITALS: BP 134/100
[2017-04-24] MEDS ORDERED: FLUARIX QUAD 2017-18 36MOS UP/PF 0.5 ML SYRINGE IM ONE (10:43)
--- NOTE | 2017-04-24 18:10 | Electrocardiograph Report ---
[address] [address] Test Date: 2017-04-23 Pat Name: Ramiro Palafox Department: 103 Room: 2NE21 Gender: M Appointment Scheduler: : 1945 Requested By: Jan Cox Order Number: [id number] Reading MD: Zane Ayers MD Measurements Intervals [place] Rate: 89 P: [place]: 0 QRS: 3 QRSD: 113 T: 49 QT: 394 QTc: 440 Interpretive Statements ATRIAL FIBRILLATION Poor R wave progression Electronically Signed On 04-24-2017 18:09:21 EDT by Zane Ayers MD
--- NOTE | 2017-04-24 18:42 | Electrocardiograph Report ---
[place] [id number] Test Date: 2017-04-23 Pat Name: Ramiro Palafox Department: 111 Room: 2NE21 Gender: M Certified Personal Finance Counselor: KRYSTINA : 1945 Requested By: Suki Hua Order Number: [id number] Reading MD: Zane Ayers MD Measurements Intervals [place] Rate: 80 P: [place]: 0 QRS: -2 QRSD: 111 T: 50 QT: 432 QTc: 467 Interpretive Statements ATRIAL FIBRILLATION WITH ABERRANT CONDUCTION OR VENTRICULAR PREMATURE COMPLEXES Poor R wave progression Electronically Signed On 04-24-2017 18:41:17 EDT by Zane Ayers MD
== END 2017-04-24 13:00 | disposition home or self-care (01) ==
LOC: 2NENU 08:32 → EMEROO 08:32 → 2NENU 10:28
PROVIDERS: ADMIT Nurse Practitioner Family; ATTEND Internal Medicine

== ENCOUNTER 2018-12-08 03:33 | Inpatient (IN) ==
--- NOTE | 2018-12-08 03:57 | Emergency Department Note ---
Disposition Clinical Impression: Pain of right lower leg Disposition: Still a Patient General Adult HPI - General Stated complaint: right leg pain Time Seen by Provider: 12/08/18 03:39 Source: EMS Limitations: no limitations Nursing Notes Reviewed: Yes Vital Signs Reviewed: Yes - History of Present Illness HPI Narrative: ED ATTESTATION NOTE: I examined this patient and my medical decision-making was reviewed with the Resident Physician/SPOOLER OPERATOR/PA/Student. I have personally performed a face to face evaluation on this patient & I agree with the documented findings, disposition and treatment plan as described except to the extent set forth below. Patient was seen with emergency medicine resident TAMAR LIN please see a copy of his note for details of this encounter Briefly: 73-year-old male via EMS for right proximal thigh pain patient feels it is talked and and achy and sore no discrete trauma comparison with the left shows that there is what appears to be low bit of tissue edema and increased tenseness in the muscle compartment in the posterior right thigh. He is difficulty extending his right knee but it is not warm is no ligamentous instability he is neurovascularly intact distally no history of blood clots and is not on blood thinners. Patient getting noncontrast CT scan of the right lower extremity. Disposition pending Pain Scale: 7 - Related Data Home Medications Medication Instructions Recorded Confirmed Allopurinol [Zyloprim] 100 mg PO BID 05/01/15 08/25/18 Aspirin [Adult Low Dose Aspirin EC] 81 mg PO QAM 05/01/15 08/25/18 Bimatoprost [Lumigan] 1 drop BOTH EYES HS 05/01/15 08/25/18 Brimonidine Tartrate [Alphagan P] 1 drop BOTH EYES TID 05/01/15 08/25/18 Dorzolamide [Trusopt] 1 drop BOTH EYES TID 05/01/15 08/25/18 Furosemide [Lasix] 40 mg PO BID 05/01/15 08/25/18 Metformin [Glucophage] 1,000 mg PO BID 05/01/15 08/25/18 Multivitamin [Multi-Day Vitamins] 1 tab PO DAILY 05/01/15 08/25/18 Simvastatin [Zocor] 20 mg PO HS 05/01/15 08/25/18 Metoprolol XL (24 HR) Succ [Toprol 1 tab PO QAM 07/21/15 08/25/18 Xl] Potassium Chloride [Klor-Con 10] 10 meq PO DAILY 09/20/17 08/25/18 Fluticasone/Salmeterol [Advair 1 each IH 11/03/18 250-50 Diskus] Tiotropium [place] [Spiriva 4 gm IH 11/03/18 Respimat] Previous Rx's Medication Instructions Recorded Rivaroxaban [Xarelto] 20 mg PO DAILY #0 03/08/17 Albuterol Sulfate [Albuterol 1 puff IH Q4HR PRN #1 hfa.aer.ad 09/20/17 Inhaler] Sacubitril/Valsartan 49/51 mg 1 tab PO BID #60 tablet 08/31/18 [Entresto 49 mg-51 mg Tablet] Azithromycin [Azithromycin 6-Tab 250 mg PO PER PKG DI #6 tab 11/03/18 Pack] Benzonatate [Tessalon] 200 mg PO TID PRN #30 capsule 11/03/18 GuaiFENesin ER [Mucinex] 1,200 mg PO BID #20 tbbp.12hr 11/03/18 Allergies Allergy/AdvReac Type Severity Reaction Status Date / Time promethazine [From Phenergan] Allergy Intermediate Rash Verified 09/02/18 11:30 Past Medical History - Past Medical History Medical history: Reports: atrial fibrillation, CHF, COPD, coronary artery disease, diabetes, hyperlipidemia, hypertension, other Surgical history: Reports: cholecystectomy, other Psychiatric history: Reports: no psych history - Social History Smoking Status: Former smoker Smokeless Tobacco Status: No Alcohol use: Reports: none Drug use: Reports: none Physical Exam - General Limitations: no limitations General appearance: alert Course Vital Signs Temperature 98 F 12/08/18 03:37 Pulse Rate 71 12/08/18 03:37 Respiratory Rate 16 12/08/18 03:37 Blood Pressure 141/87 12/08/18 03:37 O2 Sat by Pulse Oximetry 89 12/08/18 03:37 Temperature 98 F 12/08/18 03:37 Pulse Rate 71 12/08/18 03:37 Respiratory Rate 16 12/08/18 03:37 Blood Pressure 141/87 12/08/18 03:37 O2 Sat by Pulse Oximetry 89 12/08/18 03:37 Oxygen Delivery Oxygen Delivery Room Air
[2018-12-08 04:46] LABS: Basophils % 0.5 %; Eosinophils # 0.2 K/mcL (0.0-0.6); Eosinophils % 2.6 %; Hematocrit 37.3 % (37.5-50.1); Immature Granulocytes % 0.4 % (0-4); Lymphocytes # 0.7 K/mcL (0.6-4.6); Lymphocytes % 8.1 %; Mean Corpuscular HGB Conc 32.2 g/dL (31.6-35.5); Mean Corpuscular Hemoglobin 29.6 pg (28.0-33.3); Mean Corpuscular Volume 91.9 fL (83.0-100.0); Mean Platelet Volume 10.6 fL (9.4-12.4); Monocytes # 0.8 K/mcL (0.0-1.3); Monocytes % 9.5 %; Neutrophils # 6.3 K/mcL (1.6-8.9); Platelet Count 195 K/mcL (140-400); Red Blood Count 4.06 M/mcL (4.19-5.50); Red Cell Distribution Width 18.6 % (11.5-14.5); Segmented Neutrophils % 78.9 %
[2018-12-08] MEDS ORDERED: *HR* HYDROcodone/Acet 5/325 mg TABLET PO STA (04:49)
[2018-12-08 05:04] LABS: BUN/Creatinine Ratio 21 (6-26); Blood Urea Nitrogen 19 mg/dL (8-23); Carbon Dioxide 28 mEq/L (23-29); Chloride 104 mEq/L (98-107); Glucose 124 mg/dL (70-105); Osmolality,Calculated 296 (280-300); Potassium 4.1 mEq/L (3.5-5.1); Sodium 141 mEq/L (136-145); eGFR For Non-African Americans > 60 (> 60)
--- NOTE | 2018-12-08 05:18 | Emergency Department Note ---
Disposition Clinical Impression: Pain of right lower leg, Intramuscular hematoma Disposition: Admitted As Inpatient Condition: Fair Referrals: Ramu Yousif MD [Primary Care Provider] - Forms: ED Satisfaction Letter Time of Disposition: 07:21 General Adult HPI - General Chief complaint: ED Extremity Injury, Lower Stated complaint: right leg pain Time Seen by Provider: 12/08/18 03:39 Source: patient, EMS Mode of arrival: EMS Limitations: no limitations Nursing Notes Reviewed: Yes Vital Signs Reviewed: Yes - History of Present Illness HPI Narrative: Patient is a 73-year-old male with past medical history of atrial fibrillation, CHF, COPD, CAD as well as pacemaker and ICD presents to the emergency department for evaluation right lower extremity pain and limited range of motion. Patient states over the past 3 days he has noticed increasing pain circumferentially around his right mid thigh is also having difficulty fully extending his right knee and is causing him difficulty with ambulation. He denies any trauma or injury. He is on blood thinners, Xarelto. Denies any numbness or tingling. Pain Scale: 7 - Related Data Home Medications Medication Instructions Recorded Confirmed Allopurinol [Zyloprim] 100 mg PO BID 05/01/15 08/25/18 Aspirin [Adult Low Dose Aspirin EC] 81 mg PO QAM 05/01/15 08/25/18 Bimatoprost [Lumigan] 1 drop BOTH EYES HS 05/01/15 08/25/18 Brimonidine Tartrate [Alphagan P] 1 drop BOTH EYES TID 05/01/15 08/25/18 Dorzolamide [Trusopt] 1 drop BOTH EYES TID 05/01/15 08/25/18 Furosemide [Lasix] 40 mg PO BID 05/01/15 08/25/18 Metformin [Glucophage] 1,000 mg PO BID 05/01/15 08/25/18 Multivitamin [Multi-Day Vitamins] 1 tab PO DAILY 05/01/15 08/25/18 Simvastatin [Zocor] 20 mg PO HS 05/01/15 08/25/18 Metoprolol XL (24 HR) Succ [Toprol 1 tab PO QAM 07/21/15 08/25/18 Xl] Potassium Chloride [Klor-Con 10] 10 meq PO DAILY 09/20/17 08/25/18 Fluticasone/Salmeterol [Advair 1 each IH 11/03/18 250-50 Diskus] Tiotropium [place] [Spiriva 4 gm IH 11/03/18 Respimat] Previous Rx's Medication Instructions Recorded Rivaroxaban [Xarelto] 20 mg PO DAILY #0 03/08/17 Albuterol Sulfate [Albuterol 1 puff IH Q4HR PRN #1 hfa.aer.ad 09/20/17 Inhaler] Sacubitril/Valsartan 49/51 mg 1 tab PO BID #60 tablet 08/31/18 [Entresto 49 mg-51 mg Tablet] Azithromycin [Azithromycin 6-Tab 250 mg PO PER PKG DI #6 tab 11/03/18 Pack] Benzonatate [Tessalon] 200 mg PO TID PRN #30 capsule 11/03/18 GuaiFENesin ER [Mucinex] 1,200 mg PO BID #20 tbbp.12hr 11/03/18 Allergies Allergy/AdvReac Type Severity Reaction Status Date / Time promethazine [From Phenergan] Allergy Intermediate Rash Verified 09/02/18 11:30 All systems ED: reviewed and negative except as stated. Review of Systems: As Per HPI Cardiovascular: Denies: chest pain Respiratory: Denies: dyspnea Gastrointestinal: Denies: nausea, vomiting Musculoskeletal: Denies: back pain Neurological: Denies: weakness Past Medical History - Past Medical History Attestation: Yes The following information was validated with the patient. Medical history: Reports: atrial fibrillation, CHF, COPD, coronary artery disease, diabetes, hyperlipidemia, hypertension, other Surgical history: Reports: cholecystectomy, other Psychiatric history: Reports: no psych history - Social History Smoking Status: Former smoker Smokeless Tobacco Status: No Alcohol use: Reports: none Drug use: Reports: none Physical Exam - General Limitations: no limitations General appearance: alert - Head Head exam: atraumatic, normocephalic, normal inspection - Eye Eye exam: Present: normal appearance, PERRL, EOMI - ENT ENT exam: normal exam, normal oropharynx, mucous membranes moist - Neck Neck exam: Present: normal inspection, full ROM, trachea midline - Chest Chest inspection: Present: normal inspection, symmetric chest wall rise - Respiratory Respiratory exam: Present: normal lung sounds bilaterally - Cardiovascular Cardiovascular exam: Present: regular rate, normal rhythm, normal heart sounds, +S1, +S2 - Abdominal Exam Abdominal exam: Present: soft, Non-Tender. Absent: tenderness, distention, guarding, rebound, rigidity - Extremities Exam Extremities exam: Present: tenderness (posterior aspect of the RLE. ), normal capillary refill. Absent: pedal edema, calf tenderness - Expanded Lower Extremity Exam Hip/Pelvis exam: Present: normal inspection, full ROM Upper leg exam: Present: tenderness (Right posterior leg), swelling (Right leg is generally swollen an tense. ) Knee exam: Present: normal inspection, full ROM Lower leg exam: Present: normal inspection, full ROM Ankle exam: Present: normal inspection, full ROM Foot/toe exam: Present: normal inspection, full ROM Neurovascular/Tendon exam: Absent: pulse deficit, motor deficit, sensory deficit, tendon deficit, extremity cold to touch, pallor, foot drop, peroneal nerve deficit, significant pain with passive ROM of distal joint - Back Exam Back exam: Present: normal inspection, full ROM. Absent: tenderness - Neurological Exam Neurological exam: Present: alert, oriented X3 - Expanded Neurological Exam Motor strength - LLE: 5/5 Motor strength - RLE: 5/5 Sensory exam upper extremity: light touch: Normal Sensory exam lower extremity: light touch: Normal Coma Scale Eye Opening: Spontaneous Coma Scale Motor Response: Obeys Commands Coma Scale Verbal Response: Oriented Coma Scale Total: 15 - Psychiatric Psychiatric exam: Present: normal affect, normal mood - Skin Skin exam: Present: warm, dry, intact, normal color Course Course Narrative: Patient comes in with complaint of right lower she may pain localized to the right thigh most so posteriorly with mild flexion of the knee as well as flexion of the head. He has difficulty with complete extension of the right leg. Neurovascularly he is intact his sensation throughout his entire right lower extremity. He has 5 out of 5 strength in the right lower extremity. Is able to extend and flex his great toe without difficulty. Pulses are intact. He underwent DVT ultrasound for evaluation and there was no DVT however there was a superficial venous thrombosis in the distal calf. Patient also underwent a CT scan of the right lower extremity given that he had increase in swelling in the right lower extremity as well as being on blood thinners and the CT scan revealed Posterior compartment intramuscular hematomas, probably within the biceps femoris musculature, as measured above. Evaluation is somewhat limited on this noncontrast exam. Recommended to correlate for compartment syndrome. I discussed the patient's case with the orthopedist front end java developer, Dr. Napier, and he agreed to see the patient in consultation with admission to the hospitals. He states as long as the patient is neurovascularly intact she suspects of this is a so he developing posterior compartment syndrome does not need immediate intervention but he will see the patient today. Discussed the case with hospitalist on-call and discuss his recommendations and they agree to accept the patient. Vital Signs Temperature 98 F 12/08/18 03:37 Pulse Rate 71 12/08/18 03:37 Respiratory Rate 16 12/08/18 03:37 Blood Pressure 141/87 12/08/18 03:37 O2 Sat by Pulse Oximetry 89 12/08/18 03:37 Temperature 98 F 12/08/18 03:37 Pulse Rate 65 12/08/18 06:50 Respiratory Rate 16 12/08/18 06:50 Blood Pressure 122/55 12/08/18 06:50 O2 Sat by Pulse Oximetry 90 12/08/18 06:50 Oxygen Delivery Oxygen Delivery Room Air Medical Decision Making - Medical Records Medical records reviewed: Yes I reviewed the patient's medical records. - Lab Data Lab results reviewed: Yes I reviewed the patient's lab results. Result diagrams: 12/08/18 04:20 12/08/18 04:20 Lab Results 12/08/18 12/08/18 12/08/18 Range/Units 04:20 04:20 04:20 WBC 8.0 (4.3-11.1) K/mcL RBC 4.06 L (4.19-5.50) M/mcL Hgb 12.0 L (12.9-16.9) g/dL Hct 37.3 L (37.5-50.1) % MCV 91.9 (83.0-100.0) fL MCH 29.6 (28.0-33.3) pg MCHC 32.2 (31.6-35.5) g/dL RDW 18.6 H (11.5-14.5) % Plt Count 195 (140-400) K/mcL MPV 10.6 (9.4-12.4) fL Immature Gran % 0.4 (0-4) % Seg Neutrophils % 78.9 % Lymphocytes % 8.1 % Monocytes % 9.5 % Eosinophils % 2.6 % Basophils % 0.5 % Neutrophils # 6.3 (1.6-8.9) K/mcL Lymphocytes # 0.7 (0.6-4.6) K/mcL Monocytes # 0.8 (0.0-1.3) K/mcL Eosinophils # 0.2 (0.0-0.6) K/mcL Basophils # 0.0 (0.0-0.2) K/mcL D-Dimer 2244 H (0-500) ng/mLFEU Sodium 141 (136-145) mEq/L Potassium 4.1 (3.5-5.1) mEq/L Chloride 104 (98-107) mEq/L Carbon Dioxide 28 (23-29) mEq/L BUN 19 (8-23) mg/dL Creatinine 0.92 (0.70-1.30) mg/dL Est GFR ( Amer) > 60 (> 60) Est GFR (Non-Af Amer) > 60 (> 60) BUN/Creatinine Ratio 21 (6-26) Glucose 124 H (70-105) mg/dL Calculated Osmolality 296 (280-300) Calcium 9.0 (8.6-10.3) mg/dL - Radiology Data Radiology results reviewed: Yes I reviewed the patient's radiology results. Lower Extremity CT 12/08/18 03:51 IMPRESSION: Posterior compartment intramuscular hematomas, probably within the biceps femoris musculature, as measured above. Evaluation is somewhat limited on this noncontrast exam. Correlate for compartment syndrome. Critical results were called by Dr. Riley Sotelo to Guero Solraes DO on 12/08/2018 at 06:48. RECOMMENDATIONS: A multiphasic angiographic exam could assess for active extravasation if there is clinical concern. D/ / Riley Sotelo / Riley Sotelo Interpreting Provider: Riley Sotelo
[2018-12-08 07:54] LABS: Activated Partial Thrombo Time 46.4 Seconds (26.0-36.0)
[2018-12-08 07:59] LABS: INR 4.4
[2018-12-08] MEDS ORDERED: Naloxone 0.4 MG/ML INJ IVP PRN (11:23)
--- NOTE | 2018-12-08 11:27 | Internal Med History&Physical ---
Date of Encounter: 12/08/18 Time of Encounter: 09:45 Internal Medicine - H&P: HPI Chief complaint: Pain in his right lower extremity Admitted From: Emergency Dept Plans for Post Hospital Care: Home History of present illness: Mr. Palafox is a 73 year old male Patient with history of atrial fibrillation on Xarelto, congestive heart failure who presented to the ER with complaints of right lower extremity pain began yesterday evening and has been progressively worsening to the point where he is unable to ambulate as a result of his pain. He denies any fevers or chills. He has not noticed any redness or bruising. He denies any trauma. No blood in his stools. No hematemesis. No abdominal pain. No nausea or vomiting. No fevers or chills reported. Past Med Surg Social Fam HX - Past Medical History Attestation: Yes The following information was validated with the patient. Medical history: atrial fibrillation, CHF, COPD, coronary artery disease, diabetes, hyperlipidemia, hypertension, other Additional medical history: Sleep Apnea. Reactive airway. Psychiatric history: no psych history - Past Surgical History Surgical History: cholecystectomy, other Additional surgical history: pacemaker/ICD, ablasion, cardioversion x5 - Social History Smoking Status: Former smoker Smokeless Tobacco Status: No Alcohol use: none Drug use: none - Family History Mother Adopted: No Family Member Ethnicity: Non- Living Status: Age at : 54 Cause of : [place] Hx Family Cardiac Disorders: Yes Hx Family Respiratory Disorders: No Hx Family Cancer: No Hx Family GI Disorders: No Hx Family Genitourinary Disorders: No Hx Family Endocrine Disorder: Yes (DM) Hx Family Musculoskeletal Disorders: No Hx Family Neuromuscular Disorders: No Hx Family Neurologic Disorders: No Hx Family HEENT Disorders: No Hx Family Autoimmune Disorders: No Hx Family Reproductive Disorders: No Hx Family Psychosocial Disorders: No Father Family Member Ethnicity: Non- Living Status: Age at : 65 Cause of : leukemia Hx Family Cardiac Disorders: Yes Hx Family Respiratory Disorders: No Hx Family Cancer: No Hx Family GI Disorders: No Hx Family Genitourinary Disorders: No Hx Family Endocrine Disorder: No Hx Family Musculoskeletal Disorders: No Hx Family Neuromuscular Disorders: No Hx Family Neurologic Disorders: No Hx Family HEENT Disorders: No Hx Family Autoimmune Disorders: No Hx Family Reproductive Disorders: No Hx Family Psychosocial Disorders: No Hx Family Medical Disorders: No Brother Family Member Ethnicity: Non- Living Status: Hx Family Neurologic Disorders: Yes (Brain damage.) Internal Medicine - H&P: Meds Allopurinol [Zyloprim] 100 mg PO BID 05/01/15 [History] Aspirin [Adult Low Dose Aspirin EC] 81 mg PO QAM 05/01/15 [History] Bimatoprost [Lumigan] 1 drop BOTH EYES HS 05/01/15 [History] Brimonidine Tartrate [Alphagan P] 1 drop BOTH EYES TID 05/01/15 [History] Dorzolamide [Trusopt] 1 drop BOTH EYES TID 05/01/15 [History] Furosemide [Lasix] 40 mg PO BID 05/01/15 [History] Metformin [Glucophage] 1,000 mg PO BID 05/01/15 [History] Multivitamin [Multi-Day Vitamins] 1 tab PO DAILY 05/01/15 [History] Simvastatin [Zocor] 20 mg PO HS 05/01/15 [History] Metoprolol XL (24 HR) Succ [Toprol Xl] 1 tab PO QAM 07/21/15 [History] Rivaroxaban [Xarelto] 20 mg PO DAILY #0 03/08/17 [Rx] Albuterol Sulfate [Albuterol Inhaler] 1 puff IH Q4HR PRN #1 [id number].aer.[id number] 09/20/17 [Rx] Potassium Chloride [Klor-Con 10] 10 meq PO DAILY 09/20/17 [History] Sacubitril/Valsartan 49/51 mg [Entresto 49 mg-51 mg Tablet] 1 tab PO BID #60 tablet 08/31/18 [Rx] Azithromycin [Azithromycin 6-Tab Pack] 250 mg PO PER PKG DI #6 tab 11/03/18 [Rx] Benzonatate [Tessalon] 200 mg PO TID PRN #30 capsule 11/03/18 [Rx] Fluticasone/Salmeterol [Advair 250-50 Diskus] 1 each IH 11/03/18 [History] GuaiFENesin ER [Mucinex] 1,200 mg PO BID #20 tbbp.12hr 11/03/18 [Rx] Tiotropium [place] [Spiriva Respimat] 4 gm IH 11/03/18 [History] Allergy/AdvReac Type Severity Reaction Status Date / Time promethazine [From Phenergan] Allergy Intermediate Rash Verified 09/02/18 11:30 All Systems PM: A 10-system review of systems was performed and is negative for pertinent findings except as documented above in the HPI. - Constitutional Constitutional: no chills, no fever(s), no night sweats - EENT Eyes: no change in vision, no discharge, no pain, no photophobia Ears: no ear discharge, no ear pain, no tinnitus Nose, mouth and throat: no dysphagia, no nasal discharge, no neck pain, no sore throat - Cardiovascular Cardiovascular ROS IM: no chest pain, no diaphoresis, no dyspnea, no lightheadedness, no palpitations, no syncope - Respiratory Respiratory: no cough, no dyspnea, no wheezing, no excessive phlegm production - Gastrointestinal Gastrointestinal: no abdominal pain, no diarrhea, no hematemesis, no hematochezia, no melena, no nausea, no vomiting - Musculoskeletal Musculoskeletal ROS IM: no numbness, no tingling Additional comments: Right lower extremity pain - Integumentary Integumentary IM: no rash, no unusual bruising - Neurological Neurological ROS: no confusion, no convulsions, no focal weakness, no numbness, no tingling, no tremor(s) - Hematologic/Lymphatic Hematologic/Lymphatic: no easy bruising - Constitutional Vitals: Temp Pulse Resp BP Pulse Ox 98.0 F 65 18 103/64 90 12/08/18 09:59 12/08/18 09:59 12/08/18 09:59 12/08/18 09:59 12/08/18 09:59 Exam: General: Patient is alert, no acute distress, oriented x 3 Head: atraumatic, normocephalic, ENT: Mucous membranes moist Eye: normal appearance, PERRL, no scleral icterus, no conjunctival injection Neck: normal inspection, trachea midline, full ROM, no carotid bruits Chest: normal inspection, symmetric chest rise Respiratory: Good respiratory effort. Normal breath sounds. No wheezing or crackles. Cardiovascular: Regular rate and rhythm. s1 normal, loud S2 No clicks, rubs, gallops, or murmurs. No pedal edema Abdomen: Abdomen is soft, nontender. Bowel sounds are present Musculoskeletal: Decreased range of motion right lower extremity mainly due to pain. Tenderness over the posterior thigh noted. No ecchymosis noted. Skin: warm, dry, intact. Neuro: Alert oriented x 3 normal cranial nerves, no focal deficits Psych: Patient's affect is normal Internal Med - H&P Results - Labs CBC & Chem 7: 12/08/18 04:20 12/08/18 04:20 Labs: Short CBC 12/08/18 Range/Units 04:20 WBC 8.0 (4.3-11.1) K/mcL Hgb 12.0 L (12.9-16.9) g/dL Hct 37.3 L (37.5-50.1) % Plt Count 195 (140-400) K/mcL Neutrophils # 6.3 (1.6-8.9) K/mcL BMP 12/08/18 04:20 Sodium 141 Potassium 4.1 Chloride 104 Carbon Dioxide 28 BUN 19 Creatinine 0.92 Glucose 124 H Calcium 9.0 - Impressions ITS Impressions Lower Extremity CT 12/08/18 03:51 IMPRESSION: Posterior compartment intramuscular hematomas, probably within the biceps femoris musculature, as measured above. Evaluation is somewhat limited on this noncontrast exam. Correlate for compartment syndrome. Critical results were called by Dr. Riley Sotelo to Guero Solares DO on 12/08/2018 at 06:48. RECOMMENDATIONS: A multiphasic angiographic exam could assess for active extravasation if there is clinical concern. D/ / Riley Sotelo / Riley Sotelo Interpreting Provider: Riley Sotelo - Assessment and Plan (1) Intramuscular hematoma Current Visit: Yes Status: Acute Assessment and plan: Per CT, patient has right lower extremity intramuscular hematoma involving the biceps femoris muscle. He does have tenderness and pain with movement of this lower extremity. However no exterior ecchymosis or bruising noted. Patient appears to be comfortable at this time. He does have pedal pulses palpable. Orthopedics has been consulted to evaluate patient. We will continue to monitor in the hospital closely. Moderate risk for complications (2) Abnormal coagulation profile Current Visit: Yes Status: Acute Assessment and plan: INR 4.4 today. Due to Xarelto use. Will monitor hemoglobin levels. If hemoglobin levels dropped, will give patient fresh frozen plasma as antidote not available here. His last dose of this medication was yesterday evening. We will stop Xarelto for now. (3) Atrial fibrillation Current Visit: Yes Status: Chronic Assessment and plan: Rate controlled. Continue home medications. Qualifiers: Atrial fibrillation type: persistent Qualified Code(s): I48.1 - Persistent atrial fibrillation (4) CHF (congestive heart failure) Current Visit: Yes Status: Chronic Assessment and plan: Patient is currently euvolemic. Will place him on a fluid restriction diet. Qualifiers: Heart failure type: combined systolic and diastolic Heart failure chronicity: acute Qualified Code(s): I50.41 - Acute combined systolic (c ongestive) and diastolic (congestive) heart failure (5) 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 Current Visit: Yes Status: Chronic Assessment and plan: Monitor blood sugars. Sliding scale insulin regimen. Qualifiers: 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 type: type 2 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 mcc insulin use: without terminal computer operator use 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 complication status: without complication Qualified Code(s): E11.9 - Type 2 diabetes mellitus without complications (6) HTN (hypertension) Current Visit: Yes Status: Chronic Assessment and plan: Blood pressure is well controlled at this time. Continue home medications. Qualifiers: Hypertension type: essential hypertension Qualified Code(s): I10 - Essential (primary) hypertension - Time Spent With Patient Total time spent is greater than 50% in coordination of care (as documented) at patient's floor/unit and/or counseling patient:
[2018-12-08] MEDS ORDERED: *HR* Dextrose 50 % in Water (Syg) 50 ML SYRINGE IVP PRN (11:38)
[2018-12-08] MEDS ORDERED: D5% in Water 1,000 ML IVC PRN (11:38)
[2018-12-08] MEDS ORDERED: Dextrose Gel 15 GM/37.5 ML TUBE PO PRN ×2 (11:38)
[2018-12-08] MEDS ORDERED: Metoprolol XL (24 HR) Succ 50 MG TAB.ER.24H PO SCH (11:45)
[2018-12-08] MEDS: SACUBITRIL/VALSARTAN 49/51 MG TABLET PO SCH ×2 (15:26→20:18)
[2018-12-08] MEDS: Insulin LISPRO 300 UNITS/3 ML VIAL SQ SCH (16:49)
[2018-12-08 17:18] LABS: Hematocrit 35.4 % (37.5-50.1); Hemoglobin 11.4 g/dL (12.9-16.9)
[2018-12-08] MEDS ORDERED: (Tiotropium Bromide [Spiriva Respimat] 4 GM) IH PRN (18:18)
[2018-12-08] MEDS ORDERED: Latanoprost 2.5 ML BOTTLE BOTH EYES SCH (21:00)
[2018-12-08] MEDS ORDERED: Insulin LISPRO 300 UNITS/3 ML VIAL SQ SCH (21:00)
[2018-12-08] MEDS: Dorzolamide OPTH 10 ML BOTTLE BOTH EYES SCH (21:55)
[2018-12-08] MEDS: Furosemide 40 MG TABLET PO SCH (21:55)
[2018-12-08] MEDS ORDERED: *HR* Phytonadione 5 MG TABLET PO ONE (23:02)
--- NOTE | 2018-12-08 23:05 | Orthopedic Consult Note ---
Date of Encounter: 12/08/18 Time of Encounter: 23:03 History of Present Illness Chief complaint: Right thigh pain HPI: Mr. Palafox is a 73 year old male who developed acute onset of right thigh pain yesterday. Patient states that he did not have any distinct trauma. Patient had difficulty extending his knee due to the pain. Denies numbness or tingling in the foot. Denies any difficulty with ankle or foot motion. Chief complaint is difficulty straightening out his leg. Patient is on Xarelto for A. fib. He states he has been on medication for several years. I reviewed the patient's completed history and physical exam as well as his current medical record. Physical examination is a pleasant 73-year-old gentleman in minimal distress lying in the hospital bed. Examination of the right lower extremity shows the anterior right thigh to be soft. Posterior thigh is somewhat firm and there is pitting edema. There is no evidence of fullness over pain in the calf. Distal neurosensory exam is intact with brisk ankle dorsiflexion and EHL function. Patient does have pain with attempts at passively and actively extending his knee. Left side is unremarkable. I reviewed his CT scan. This reveals a fairly large hematoma in the distal third of the posterior compartment probably the biceps from [place]. No evidence of acute bony injury. Impression: Right posterior thigh hematoma secondary to chronic anticoagulation Recommendation: Currently there is no findings to suggest that we are dealing with a compartment syndrome. Patient has intact distal function. Need to continue with close neurovascular monitoring including foot and ankle function a nd sensory complaints. Close observation of pain complaints need to be maintained as this is still frequent chief finding of compartment syndrome. Have elevated the leg further. We will give vitamin K today to diminish his PT. Frequently evaluate his status. Patient is aware that compartment pressure monitoring may be necessary and ultimately a fasciotomy may be required. Discussed that I would attempt to avoid compartment pressure monitoring with a markedly elevated bleeding time as this in and of itself can cause additional bleeding. Thank you very much for allowing me to seen care for Mr. Palafox. Sincerely, Eder Napier,DO Past Med Surg Social Fam HX - Past Medical History Medical history: atrial fibrillation, CHF, COPD, coronary artery disease, diabetes, hyperlipidemia, hypertension, other Additional medical history: Sleep Apnea. Reactive airway. Psychiatric history: no psych history - Past Surgical History Surgical History: cholecystectomy, other Additional surgical history: pacemaker/ICD, ablasion, cardioversion x5 - Social History Smoking Status: Former smoker Smokeless Tobacco Status: No Alcohol use: none Drug use: none - Family History Mother Adopted: No Family Member Ethnicity: Non- Living Status: Age at : 54 Cause of : [place] Hx Family Cardiac Disorders: Yes Hx Family Respiratory Disorders: No Hx Family Cancer: No Hx Family GI Disorders: No Hx Family Genitourinary Disorders: No Hx Family Endocrine Disorder: Yes (DM) Hx Family Musculoskeletal Disorders: No Hx Family Neuromuscular Disorders: No Hx Family Neurologic Disorders: No Hx Family HEENT Disorders: No Hx Family Autoimmune Disorders: No Hx Family Reproductive Disorders: No Hx Family Psychosocial Disorders: No Father Family Member Ethnicity: Non- Living Status: Age at : 65 Cause of : leukemia Hx Family Cardiac Disorders: Yes Hx Family Respiratory Disorders: No Hx Family Cancer: No Hx Family GI Disorders: No Hx Family Genitourinary Disorders: No Hx Family Endocrine Disorder: No Hx Family Musculoskeletal Disorders: No Hx Family Neuromuscular Disorders: No Hx Family Neurologic Disorders: No Hx Family HEENT Disorders: No Hx Family Autoimmune Disorders: No Hx Family Reproductive Disorders: No Hx Family Psychosocial Disorders: No Hx Family Medical Disorders: No Brother Family Member Ethnicity: Non- Living Status: Hx Family Neurologic Disorders: Yes (Brain damage.) Medications and Allergies Bimatoprost [Lumigan] 1 drop BOTH EYES HS 05/01/15 [History] Brimonidine Tartrate [Alphagan P] 1 drop BOTH EYES TID 05/01/15 [History] Metoprolol XL (24 HR) Succ [Toprol Xl] 50 mg PO QAM 07/21/15 [History] Potassium Chloride [Klor-Con 10] 10 meq PO 1200 09/20/17 [History] Sacubitril/Valsartan 49/51 mg [Entresto 49 mg-51 mg Tablet] 1 tab PO BID #60 tablet 08/31/18 [Rx] Tiotropium [place] [Spiriva Respimat] 4 gm IH DAILY PRN 11/03/18 [History] Albuterol Sulfate [Ventolin Hfa] 1 puff PO Q4H PRN 12/08/18 [History] Allopurinol [Zyloprim 100 MG] 100 mg PO BID 12/08/18 [History] Aspirin [Lo-Dose Aspirin EC] 81 mg PO QAM 12/08/18 [History] Dorzolamide [Trusopt] 1 drop BOTH EYES TID 12/08/18 [History] Furosemide [Lasix] 40 mg PO BID 12/08/18 [History] Metformin HCl [Glucophage] 1,000 mg PO BID 12/08/18 [History] Metoprolol Succinate [Toprol Xl] 25 mg PO 1200 12/08/18 [History] Multivitamin [Daily Multiple Vitamin] 1 tab PO QAM 12/08/18 [History] Rivaroxaban [Xarelto] 20 mg PO QPM 12/08/18 [History] Simvastatin [Zocor] 20 mg PO HS 12/08/18 [History] Umeclidinium [place] [Incruse Ellipta] 1 puff PO QPM 12/08/18 [History] Allergy/AdvReac Type Severity Reaction Status Date / Time promethazine [From Phenergan] Allergy Intermediate Rash Verified 12/08/18 11:50 All Systems Reviewed: The remainder of the systems were reviewed and are negative Physical Exam - Constitutional Vitals: Temp Pulse Resp BP Pulse Ox 98.3 F 58 16 109/72 97 12/08/18 18:33 12/08/18 18:33 12/08/18 18:33 12/08/18 18:33 12/08/18 18:33 Results - Labs Result Diagrams: 12/08/18 16:52 12/08/18 04:20 Labs: Abnormal lab results RBC 4.06 M/mcL (4.19-5.50) L 12/08/18 04:20 Hgb 11.4 g/dL (12.9-16.9) L 12/08/18 16:52 Hct 35.4 % (37.5-50.1) L 12/08/18 16:52 RDW 18.6 % (11.5-14.5) H 12/08/18 04:20 PT 50.0 Seconds (9.4-12.1) H* 12/08/18 07:28 INR 4.4 H* 12/08/18 07:28 APTT 46.4 Seconds (26.0-36.0) H 12/08/18 07:28 2244 ng/mLFEU (0-500) H 12/08/18 04:20 Glucose 124 mg/dL (70-105) H 12/08/18 04:20 POC Glucose 115 mg/dL (70-99) H 12/08/18 16:45 H & H 12/08/18 12/08/18 Range/Units 04:20 16:52 Hgb 12.0 L 11.4 L (12.9-16.9) g/dL Hct 37.3 L 35.4 L (37.5-50.1) % All other labs normal. - Diagnostic results Hip CT: image reviewed Consult Discharge Plan - Plan Referrals: Ramu Yousif MD [Primary Care Provider] -
[2018-12-09 07:35] LABS: Basophils % 0.4 %; Eosinophils # 0.1 K/mcL (0.0-0.6); Eosinophils % 1.2 %; Hematocrit 29.7 % (37.5-50.1); Immature Granulocytes % 0.1 % (0-4); Lymphocytes # 0.8 K/mcL (0.6-4.6); Mean Corpuscular HGB Conc 32.3 g/dL (31.6-35.5); Mean Corpuscular Hemoglobin 29.6 pg (28.0-33.3); Mean Corpuscular Volume 91.7 fL (83.0-100.0); Monocytes # 1.1 K/mcL (0.0-1.3); Monocytes % 13.6 %; Platelet Count 163 K/mcL (140-400); Red Blood Count 3.24 M/mcL (4.19-5.50); Red Cell Distribution Width 18.4 % (11.5-14.5); Segmented Neutrophils % 74.7 %
[2018-12-09 07:37] LABS: Hemoglobin 9.6 g/dL (12.9-16.9)
[2018-12-09 07:48] LABS: INR 2.6; Prothrombin Time 29.2 Seconds (9.4-12.1)
[2018-12-09 07:52] LABS: BUN/Creatinine Ratio 20 (6-26); Blood Urea Nitrogen 17 mg/dL (8-23); Calcium 8.4 mg/dL (8.6-10.3); Carbon Dioxide 27 mEq/L (23-29); Chloride 101 mEq/L (98-107); Glucose 118 mg/dL (70-105); Osmolality,Calculated 289 (280-300); Potassium 3.4 mEq/L (3.5-5.1); Sodium 138 mEq/L (136-145); eGFR For Non-African Americans > 60 (> 60)
[2018-12-09] MEDS: Insulin LISPRO 300 UNITS/3 ML VIAL SQ SCH ×4 (08:17→20:05)
[2018-12-09] MEDS ORDERED: Metoprolol XL (24 HR) Succ 50 MG TAB.ER.24H PO SCH (09:00)
[2018-12-09] MEDS ORDERED: Multivit/Ca/Min/Fe/FA 1 TAB TABLET PO SCH (09:00)
[2018-12-09] MEDS: Furosemide 40 MG TABLET PO SCH ×2 (09:18→18:45)
[2018-12-09] MEDS: SACUBITRIL/VALSARTAN 49/51 MG TABLET PO SCH ×2 (09:19→20:02)
[2018-12-09] MEDS: Dorzolamide OPTH 10 ML BOTTLE BOTH EYES SCH ×3 (09:19→20:04)
[2018-12-09] MEDS ORDERED: 0.9 % Sodium Chloride 500 ML ONE (11:59)
[2018-12-09] MEDS ORDERED: Metoprolol XL (24 HR) Succ 25 MG TAB.ER.24H PO SCH (12:00)
--- NOTE | 2018-12-09 12:17 | Internal Med Progress Note ---
Hospitalist Progress Note - Encounter Date of Encounter: 12/09/18 Time of Encounter: 08:30 - Subjective Interval History: Patient lying down in bed. Complains of pain in his right lower extremity which has worsened overnight. He complains that the pain has traveled out to his right ankle. He denies any focal deficits. He still level to move his legs without any significant worsening of pain. - Exam Vitals: Temp Pulse Resp BP Pulse Ox 98.4 F 82 18 104/70 99 12/09/18 12:10 12/09/18 12:10 12/09/18 12:10 12/09/18 12:10 12/09/18 12:10 Exam: General: Patient is alert, mild distress, oriented x 3 ENT: Mucous membranes moist Respiratory: Good respiratory effort. Normal breath sounds. No wheezing or crackles. Cardiovascular: Regular rate and rhythm. s1 and s2 normal No clicks, rubs, gallops, or murmurs. No pedal edema Abdomen: Abdomen is soft, nontender. Bowel sounds are present Musculoskeletal: Right lower extremity definitely more swollen compared to the left. Tenderness present around his right ankle and right posterior calf and thigh. Pedal pulses palpable bilaterally Skin: warm, dry, intact. No ecchymosis or bruising noted in lower extremity Neuro: Alert oriented x 3 normal cranial nerves, no focal deficits - Assessment and Plan (1) Intramuscular hematoma Current Visit: Yes Status: Acute Assessment and Plan: Orthopedics has evaluated patient. We will follow recommendations. Patient received vitamin K yesterday. INR still elevated. Will give fresh frozen plasma. Anticoagulation stopped at this time. He did have a drop in his hemoglobin to 9.6. We will continue to monitor closely. He does remain at high risk for compartment syndrome. At this time does not have features of compartment syndrome and he has good pedal pulses and right lower extremity movements. Orthopedics to check his compartment pressures later today (2) Abnormal coagulation profile Current Visit: Yes Status: Acute Assessment and Plan: Improving. Due to Xarelto use. Xarelto has been held. INR 2.6 today will give fresh frozen plasma to correct it further as patient did develop a drop in his hemoglobin overnight. (3) Atrial fibrillation Current Visit: Yes Status: Chronic Assessment and Plan: Rate controlled. (4) CHF (congestive heart failure) Current Visit: Yes Status: Chronic Assessment and Plan: Continue home medications as tolerated. Patient is euvolemic (5) 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 Current Visit: Yes Status: Chronic Assessment and Plan: Well-controlled blood sugars. Continue to monitor (6) HTN (hypertension) Current Visit: Yes Status: Chronic Assessment and Plan: Blood pressure is well controlled at this time. - Time Spent with Patient Total time spent is greater than 50% in coordination of care (as documented) at patient's floor/unit and/or counseling patient: Internal Medicine: Result - Labs CBC & Chem 7: 12/09/18 06:26 12/09/18 06:26 Labs: Short CBC 12/08/18 12/09/18 Range/Units 16:52 06:26 WBC 8.1 (4.3-11.1) K/mcL Hgb 11.4 L 9.6 L D (12.9-16.9) g/dL Hct 35.4 L 29.7 L (37.5-50.1) % Plt Count 163 (140-400) K/mcL Neutrophils # 6.0 (1.6-8.9) K/mcL BMP 12/09/18 06:26 Sodium 138 Potassium 3.4 L Chloride 101 Carbon Dioxide 27 BUN 17 Creatinine 0.86 Glucose 118 H Calcium 8.4 L - ABG Interpretation ABG results: PT/INR, D-dimer PT 29.2 Seconds (9.4-12.1) H 12/09/18 06:26 2244 ng/mLFEU (0-500) H 12/08/18 04:20 Consult Discharge Plan - Plan Referrals: Ramu Yousif MD [Primary Care Provider] - (3) Atrial fibrillation Qualifiers: Atrial fibrillation type: persistent Qualified Code(s): I48.1 - Persistent atrial fibrillation (4) CHF (congestive heart failure) Qualifiers: Heart failure type: combined systolic and diastolic Heart failure chronicity: acute Qualified Code(s): I50.41 - Acute combined systolic (congestive) and diastolic (congestive) heart failure (5) 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 Qualifiers: 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 type: type 2 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 terminal make up operator insulin use: without longterm use 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 complication status: without complication Qualified Code(s): E11.9 - Type 2 diabetes mellitus without complications (6) HTN (hypertension) Qualifiers: Hypertension type: essential hypertension Qualified Code(s): I10 - Essential (primary) hypertension
--- NOTE | 2018-12-09 13:58 | Orthopedics Progress Note ---
Date of Encounter: 12/09/18 Time of Encounter: 13:54 Subjective Principal diagnosis: Posterior thigh hematoma Interval history: 12/09/2018. Patient is having some pain in the ankle area. Posterior thigh and leg remain painful. No acute change in pain. Vital signs are stable. Patient is afebrile. Neurovascular exam distally remains intact with sensation in the foot intact and EHL and dorsi and plantar flexion of the foot intact. Thigh is more edematous posteriorly. Anterior compartment remain soft. Hemoglobin is down to 9.6. Platelet count remains normal at 163. White count remains normal. Pro-time has dropped to 29.2 with oral vitamin K. Fresh frozen plasma is currently being infused. Impression: Right posterior thigh hematoma secondary to anticoagulation Recommendation: Discussed with the patient that we could continue to monitor him, obtain inter-compartment pressures and plan further treatment based upon those results or proceed with a fasciotomy the posterior thigh today to definitively treat the hematoma and potential for compartment syndrome. The patient has requested we proceed with fasciotomy which I recommend and agree with his decision. He has signed informed consent for the surgery. He is aware of the surgical procedure as well as the potential risks and complications including but not limited to bleeding, infection, nerve injury and the potential for further surgery which could include wound closure or even skin grafting. We will proceed with surgery today when operating time is available. Objective Vital signs: Vital Signs Temp Pulse Resp BP Pulse Ox 12/09/18 13:20 98.2 F 82 18 119/78 98 12/09/18 12:30 98.1 F 82 18 120/80 96 12/09/18 12:15 98.4 F 82 18 119/86 98 12/09/18 12:10 98.4 F 82 18 104/70 99 12/09/18 11:23 97.6 F 64 17 101/67 90 12/09/18 09:49 98 12/09/18 07:38 97.7 F 68 16 116/82 95 12/09/18 03:55 98.9 F 48 16 109/67 91 12/08/18 23:46 98.2 F 90 16 107/69 97 12/08/18 18:33 98.3 F 58 16 109/72 97 12/08/18 14:45 97.9 F 63 18 106/69 98 Intake and Output 12/08/18 12/09/18 12/09/18 23:59 07:59 15:59 Intake Total 982 / 982 Output Total 800 / 800 600 / 600 Balance -800 / -800 -600 / 382 982 / 382 Intake: Oral 360 / 360 Blood Product 622 / 622 Plasma Unit [id number] 622 / 622 Output: Urine 800 / 800 600 / 600 Other: Meal NPO Percent of Meal Consumed 100% Weight 99 kg Blood Glucose* 134 120 136 Patient Weight 12/09/18 23:59 Weight 99 kg - Labs CBC & BMP: 12/09/18 06:26 12/09/18 06:26 Labs: Abnormal lab results RBC 3.24 M/mcL (4.19-5.50) L 12/09/18 06:26 Hgb 9.6 g/dL (12.9-16.9) L D 12/09/18 06:26 Hct 29.7 % (37.5-50.1) L 12/09/18 06:26 RDW 18.4 % (11.5-14.5) H 12/09/18 06:26 PT 29.2 Seconds (9.4-12.1) H 12/09/18 06:26 INR 4.4 H* 12/08/18 07:28 APTT 46.4 Seconds (26.0-36.0) H 12/08/18 07:28 2244 ng/mLFEU (0-500) H 12/08/18 04:20 Potassium 3.4 mEq/L (3.5-5.1) L 12/09/18 06:26 Glucose 118 mg/dL (70-105) H 12/09/18 06:26 POC Glucose 115 mg/dL (70-99) H 12/08/18 16:45 Calcium 8.4 mg/dL (8.6-10.3) L 12/09/18 06:26 Consult Discharge Plan - Plan Referrals: Ramu Yousif MD [Primary Care Provider] -
--- NOTE | 2018-12-09 14:30 | Anesthesia Evaluation PreOp ---
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 History: Denies Any Significant HX Other Medical History: Diabetes Type II (oral medications only), Other (coagulopathy; posterior thigh hematoma) Anesthesia History: No Prior Anesthetic Complications Alcohol Use: none Drug use: none Medications and Allergies Bimatoprost [Lumigan] 1 drop BOTH EYES HS 05/01/15 [History] Brimonidine Tartrate [Alphagan P] 1 drop BOTH EYES TID 05/01/15 [History] Metoprolol XL (24 HR) Succ [Toprol Xl] 50 mg PO QAM 07/21/15 [History] Potassium Chloride [Klor-Con 10] 10 meq PO 1200 09/20/17 [History] Sacubitril/Valsartan 49/51 mg [Entresto 49 mg-51 mg Tablet] 1 tab PO BID #60 tablet 08/31/18 [Rx] Tiotropium [place] [Spiriva Respimat] 4 gm IH DAILY PRN 11/03/18 [History] Albuterol Sulfate [Ventolin Hfa] 1 puff PO Q4H PRN 12/08/18 [History] Allopurinol [Zyloprim 100 MG] 100 mg PO BID 12/08/18 [History] Aspirin [Lo-Dose Aspirin EC] 81 mg PO QAM 12/08/18 [History] Dorzolamide [Trusopt] 1 drop BOTH EYES TID 12/08/18 [History] Furosemide [Lasix] 40 mg PO BID 12/08/18 [History] Metformin HCl [Glucophage] 1,000 mg PO BID 12/08/18 [History] Metoprolol Succinate [Toprol Xl] 25 mg PO 1200 12/08/18 [History] Multivitamin [Daily Multiple Vitamin] 1 tab PO QAM 12/08/18 [History] Rivaroxaban [Xarelto] 20 mg PO QPM 12/08/18 [History] Simvastatin [Zocor] 20 mg PO HS 12/08/18 [History] Umeclidinium [place] [Incruse Ellipta] 1 puff PO QPM 12/08/18 [History] Allergy/AdvReac Type Severity Reaction Status Date / Time promethazine [From Phenergan] Allergy Intermediate Rash Verified 12/08/18 11:50 - Meds/Allergy Pre-op Review Medications Reviewed: Yes Allergies Reviewed: Yes Beta Blockers on Current Med List: Yes (metoprolol) If Beta Blockers taken, Date/Time (Last Dose taken): 12-09-18 metoprolol 12:17 Anesthesia Results - Labs 12/09/18 06:26 12/09/18 06:26 - Imaging EKG: report reviewed, image reviewed (ATRIAL FIBRILLATION WITH ABERRANT CONDUCTION OR VENTRICULAR PREMATURE COMPLEXES POSSIBLE ANTERIOR MYOCARDIAL INFARCTION, PROBABLY OLD IVCD T-WAVE ABNORMALITY, CONSIDER LATERAL ISCHEMIA) Additional studies: -2018 TTE: Impressions: LVEF 15-20%. Moderately dilated left ventricle. Severe global left ventricular systolic dysfunction. Indeterminate diastolic function. Mildly dilated right ventricle. Mild right ventricular hypokinesis. Mild mitral regurgitation. Mild tricuspid regurgitation. Moderate pulmonary hypertension. Estimated RVSP is 45-50 mmHg. A device lead was visualized in the right atrium and right ventricle. Anesthesia Exam Last Vital Signs Temp 99 F 12/09/18 17:58 Pulse 64 12/09/18 17:58 Resp 14 12/09/18 17:58 BP 88/55 12/09/18 17:58 Pulse Ox 98 12/09/18 17:58 Weight: 99 kg NPO (# of Hours): = 8 hrs - HEENT Pupil (Motor): Pupils equal, EOMI Mallampati: III Teeth: Missing, Poor dentition Oral Opening: Greater than 3 - REPAIRER SWITCHGEAR LOC: Oriented - Cardiac Rhythm: Irregular - Pulmonary Breath Sounds: bilateral Clear Respiratory Effort: Symmetrical Anesthesia Assess/Plan ASA Score: 4 Level of consciousness: Cooperative Anesthetic Plan: Regional Nerve Block, MAC Regional Nerve Block Plan: Sciatic Monitoring Plan: Standard Monitors Recovery Plan: PACU
[2018-12-09] MEDS ORDERED: CeFAZolin Syr 2,000MG/20 ML 2,000 MG/20 ML SYRINGE IVPB ONE (15:00)
[2018-12-09] MEDS ORDERED: SODIUM CHLORIDE 0.9% IVPB SCH ×2 (15:45→18:25)
[2018-12-09] MEDS ORDERED: DESMOPRESSIN IVPB SCH ×2 (15:45→18:25)
[2018-12-09] MEDS ORDERED: *HR* FentaNYL (PF) 100 MCG/2 ML VIAL ONE (16:36)
[2018-12-09] MEDS ORDERED: *HR* Midazolam HCl 2 MG/2 ML VIAL ONE (16:36)
[2018-12-09] MEDS ORDERED: Tranexamic Acid 1,000 MG/10 ML VIAL ONE (17:01)
[2018-12-09] MEDS ORDERED: Lidocaine 1% 20 ML MDV ONE (17:24)
[2018-12-09] MEDS ORDERED: *HR* Propofol 200 MG/20 ML VIAL IVP ONE (17:27)
[2018-12-09] MEDS ORDERED: (Umeclidinium Bromide [Incruse Ellipta] 1 PUFF) PO SCH (18:00)
--- NOTE | 2018-12-09 18:06 | Operative Note ---
Date of procedure: 12/09/18 Pre-op diagnosis: Hematoma right posterior thigh Post-op diagnosis: same Procedure: 1. Fasciotomy Right thigh posterior compartment 2. Evacuation of hematoma right posterior thigh Implants: None Complications: None Anesthesia: regional Surgeon: Eder Napier Was there an faculty i on call medical assistant present: No Estimated blood loss (cc): 100 Tourniquet Time (Minutes): 0 Specimen: None Condition: stable (None) Disposition: PACU Procedure in Detail: Gross findings: Preoperative clinical examination revealed marked fullness in the posterior distal right thigh. Patient had marked tightness to the posterior thigh especially distally. Patient had difficulty with knee extension. There was no distinct neurovascular loss distal. Preoperative CT scan revealed a large fluid collection in the posterior compartment compatible with a bleed with in the biceps femoris. A posterior lateral incision was created distally in the thigh. There was used to perform the fasciotomy followed by blunt dissection through the belly of the rectus femoris and evacuation of probably 100 mL of mostly clotted blood with some dark blood also evacuated. No active bleeding was noted. The fascia was not closed. Excellent decompression had can occurred with removal of the hematoma. The skin was loosely approximated with an elastic, flexible closure. Procedure: Patient was taken the operating room placed in the supine position on the operating table. Patient previously had a sciatic nerve block ministered by anesthesia in the preoperative area. The right lower extremity was then prepped and draped with the exposure of the posterolateral thigh accomplished by elevating the leg and slightly rotating the patient. Skin incision site was infiltrated with a total of 10 mL of 1% lidocaine solutio n. Approximately 6-8 cm incision was created along the posterolateral distal thigh. Dissection was carried through the skin and 6 scanty subcutaneous tissues. Marked amount of hematoma was encountered in the subcutaneous tissue. The posterior fascia was then opened and split proximal and distal the length of a Metzenbaum scissors. This was followed by the biceps femoris muscle protruding through the opening. Blunt dissection in line with the muscle fibers was now performed until the hematoma cavity was encountered. The majority of the blood had been clotted. This was evacuated with manual removal. Fair amount of non-clotted blood was also encountered and evacuated. Limited irrigation was performed. This was followed by loose approximation of the skin by placing skin nicholas along the edges of the incision and then running a flexible vessel loop a shoelace fashion gaining excellent approximation but putting no tension on the skin edge. Dressings consisting of 4 x 4's ABDs Ke rlix were now applied and secured. Patient was now transferred from the operating room table to the hospital bed and then transported to the postanesthesia care unit in stable and satisfactory condition. All sponge needle and isthmic counts are correct. No specimens are sent for pathology.
--- NOTE | 2018-12-09 18:13 | Anesthesia Procedures ---
Date of Encounter: 12/09/18 Time of Encounter: 17:00 Procedures: Anesthesia - Nerve Block Procedure Date: 12/09/18 Time: 17:00 Allergies/Adv Reactions: reviewed Pre-op Diagnosis: right thigh pain Surgical Procedure: right posterior thigh fasciotomy Checklist: Correct Patient Identifier, Correct procedure, History checked Correct side: Right Blood Thinner: Yes (held since ) Monitor Applied: EKG, BP, Pulse Oximetry Supplemental Oxygen via Nasal Cannula (L/min): 2 Sedation: Versed (mg): 2 Indication: Primary Anesthesia Block Type: Sciatic Neuro Stimulation: Yes Nerve Stimulator Range: 0.2 - 0.4 mA Blood on Needle Aspiration: No Smooth Injection of Local: Yes Pain with Injection of Local: No Prep: Chlorhexadine Local: Other (2% lidocaine) Volume (cc): 20 Number of Attempts: 2 Comments: ineffective block; converted to MAC anesthesia with supplemental local
--- NOTE | 2018-12-09 18:14 | Anesthesia Evaluation Post Op ---
Date of Encounter: 12/09/18 Time of Encounter: 18:13 - Vital Signs Vital Signs: Last Vital Signs Temp 99 F 12/09/18 17:58 Pulse 60 12/09/18 18:08 Resp 18 12/09/18 18:08 BP 91/55 12/09/18 18:08 Pulse Ox 97 12/09/18 18:08 - Lungs Lungs: Clear Ascult./Percussion - Airway Airway: Non-obstructed - Cardiovascular Irregular Rate, New Rhythm - Mental Status Mental Status: Alert & Oriented, Answers Appropriately - Pain Pain Scale: 0 - Nausea Vomiting Nausea Vomiting: Not Present - Hydration Hydration: NPO - Discharge PostOp Status: Transfer Patient to floor
[2018-12-09] MEDS ORDERED: (Tiotropium Bromide [Spiriva Respimat] 4 GM) IH PRN (18:25)
[2018-12-09] MEDS ORDERED: *HR* Dextrose 50 % in Water (Syg) 50 ML SYRINGE IVP PRN (18:25)
[2018-12-09] MEDS ORDERED: D5% in Water 1,000 ML IVC PRN (18:25)
[2018-12-09] MEDS ORDERED: Dextrose Gel 15 GM/37.5 ML TUBE PO PRN ×2 (18:25)
[2018-12-09] MEDS ORDERED: Naloxone 0.4 MG/ML INJ IVP PRN (18:25)
[2018-12-09] MEDS: Latanoprost 2.5 ML BOTTLE BOTH EYES SCH (20:03)
[2018-12-09 20:37] LABS: Hematocrit 25.4 % (37.5-50.1); Hemoglobin 8.3 g/dL (12.9-16.9)
[2018-12-09 20:49] LABS: Prothrombin Time 22.6 Seconds (9.4-12.1)
[2018-12-10] MEDS: ceFAZolin 1,000 MG in Water for inj. (sterile) 20 ML 10 ML IVP SCH ×3 (00:31→17:12)
[2018-12-10] MEDS ORDERED: Acetaminophen IV 500 MG/50 ML INFUS..BTL IVPB ONE (05:15)
[2018-12-10 06:01] LABS: Basophils % 0.4 %; Eosinophils # 0.1 K/mcL (0.0-0.6); Eosinophils % 1.3 %; Hematocrit 24.6 % (37.5-50.1); Hemoglobin 7.9 g/dL (12.9-16.9); Immature Granulocytes % 0.4 % (0-4); Lymphocytes # 0.6 K/mcL (0.6-4.6); Mean Corpuscular HGB Conc 32.1 g/dL (31.6-35.5); Mean Corpuscular Hemoglobin 29.6 pg (28.0-33.3); Mean Corpuscular Volume 92.1 fL (83.0-100.0); Mean Platelet Volume 9.8 fL (9.4-12.4); Monocytes # 0.9 K/mcL (0.0-1.3); Monocytes % 13.4 %; Neutrophils # 5.1 K/mcL (1.6-8.9); Platelet Count 135 K/mcL (140-400); Red Blood Count 2.67 M/mcL (4.19-5.50); Red Cell Distribution Width 18.5 % (11.5-14.5); Segmented Neutrophils % 75.5 %
[2018-12-10 06:20] LABS: BUN/Creatinine Ratio 19 (6-26); Blood Urea Nitrogen 21 mg/dL (8-23); Calcium 8.3 mg/dL (8.6-10.3); Carbon Dioxide 29 mEq/L (23-29); Chloride 99 mEq/L (98-107); Glucose 128 mg/dL (70-105); Osmolality,Calculated 287 (280-300); Potassium 3.5 mEq/L (3.5-5.1); Sodium 136 mEq/L (136-145); eGFR For Non-African Americans > 60 (> 60)
[2018-12-10] MEDS: SACUBITRIL/VALSARTAN 49/51 MG TABLET PO SCH ×2 (09:16→20:30)
[2018-12-10] MEDS: Furosemide 40 MG TABLET PO SCH ×2 (09:16→17:12)
[2018-12-10] MEDS: Insulin LISPRO 300 UNITS/3 ML VIAL SQ SCH ×4 (09:16→20:39)
[2018-12-10] MEDS: Multivit/Ca/Min/Fe/FA 1 TAB TABLET PO SCH (09:17)
[2018-12-10] MEDS: Metoprolol XL (24 HR) Succ 50 MG TAB.ER.24H PO SCH (09:17)
[2018-12-10] MEDS: Dorzolamide OPTH 10 ML BOTTLE BOTH EYES SCH ×3 (09:18→20:29)
--- NOTE | 2018-12-10 11:58 | Internal Med Progress Note ---
Hospitalist Progress Note - Encounter Date of Encounter: 12/10/18 Time of Encounter: 08:50 - Subjective Interval History: Patient underwent surgery yesterday . He complains of pain in his right lower extremity but controlled. Denies any dizziness or lightheadedness. No nausea or vomiting. No fever or chills reported overnight. Tolerating diet well. - Exam Vitals: Temp Pulse Resp BP Pulse Ox 97.9 F 63 15 106/68 99 12/10/18 11:40 12/10/18 11:40 12/10/18 11:40 12/10/18 11:40 12/10/18 11:40 Exam: General: Patient is alert, no acute distress, oriented x 3 ENT: Mucous membranes moist Respiratory: Good respiratory effort. Normal breath sounds. No wheezing or crackles. Cardiovascular: Regular rate and rhythm. s1 and s2 normal No clicks, rubs, gallops, or murmurs. No pedal edema Abdomen: Abdomen is soft, nontender. Bowel sounds are present Musculoskeletal: Decreased range of motion in right lower extremity. Right thigh bandaged. Patient has palpable pedal pulses bilaterally. Skin: warm, dry, intact. Neuro: Alert oriented x 3 normal cranial nerves, no focal deficits - Assessment and Plan (1) Intramuscular hematoma Current Visit: Yes Status: Acute (2) Abnormal coagulation profile Current Visit: Yes Status: Acute (3) Atrial fibrillation Current Visit: Yes Status: Chronic (4) CHF (congestive heart failure) Current Visit: Yes Status: Chronic (5) 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 Current Visit: Yes Status: Chronic (6) HTN (hypertension) Current Visit: Yes Status: Chronic - Summary of Assessment and Plan Summary of Assessment and Plan: Right thigh posterior compartment intramuscular hematoma status post fasciotomy and evacuation of hematoma postop day 1. Patient doing well. Hemoglobin remains low. At 7.9 this morning. We will continue to monitor and if it trends down further, will transfuse 1 unit PRBC. Blood sugars are well controlled. Patient remains in A. fib but rate controlled. Xarelto discontinued for now. Patient remains euvolemic. Blood pressure is also well controlled. - Time Spent with Patient Total time spent is greater than 50% in coordination of care (as documented) at patient's floor/unit and/or counseling patient: Internal Medicine: Result - Labs CBC & Chem 7: 12/10/18 05:51 12/10/18 05:51 Labs: Short CBC 12/09/18 12/10/18 Range/Units 20:16 05:51 WBC 6.8 (4.3-11.1) K/mcL Hgb 8.3 L 7.9 L (12.9-16.9) g/dL Hct 25.4 L 24.6 L (37.5-50.1) % Plt Count 135 L (140-400) K/mcL Neutrophils # 5.1 (1.6-8.9) K/mcL BMP 12/10/18 05:51 Sodium 136 Potassium 3.5 Chloride 99 Carbon Dioxide 29 BUN 21 Creatinine 1.08 Glucose 128 H Calcium 8.3 L - ABG Interpretation ABG results: PT/INR, D-dimer PT 22.6 Seconds (9.4-12.1) H 12/09/18 20:16 2244 ng/mLFEU (0-500) H 12/08/18 04:20 Consult Discharge Plan - Plan Referrals: Ramu Yousif MD [Primary Care Provider] - (3) Atrial fibrillation Qualifiers: Atrial fibrillation type: persistent Qualified Code(s): I48.1 - Persistent atrial fibrillation (4) CHF (congestive heart failure) Qualifiers: Heart failure type: combined systolic and diastolic Heart failure chronicity: acute Qualified Code(s): I50.41 - Acute combined systolic (congestive) and diastolic (congestive) heart failure (5) 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 Qualifiers: 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 type: type 2 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 group home insulin use: without group home use 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 complication status: without complication Qualified Code(s): E11.9 - Type 2 diabetes mellitus without complications (6) HTN (hypertension) Qualifiers: Hypertension type: essential hypertension Qualified Code(s): I10 - Essential (primary) hypertension
[2018-12-10] MEDS: Metoprolol XL (24 HR) Succ 25 MG TAB.ER.24H PO SCH (12:04)
[2018-12-10 13:03] LABS: Hematocrit 26.4 % (37.5-50.1); Hemoglobin 8.5 g/dL (12.9-16.9)
--- NOTE | 2018-12-10 14:02 | Orthopedics Progress Note ---
Date of Encounter: 12/10/18 Time of Encounter: 13:59 Subjective Principal diagnosis: Posterior thigh hematoma Interval history: 12/09/2018. Patient is having some pain in the ankle area. Posterior thigh and leg remain painful. No acute change in pain. Vital signs are stable. Patient is afebrile. Neurovascular exam distally remains intact with sensation in the foot intact and EHL and dorsi and plantar flexion of the foot intact. Thigh is more edematous posteriorly. Anterior compartment remain soft. Hemoglobin is down to 9.6. Platelet count remains normal at 163. White count remains normal. Pro-time has dropped to 29.2 with oral vitamin K. Fresh frozen plasma is currently being infused. Impression: Right posterior thigh hematoma secondary to anticoagulation Recommendation: Discussed with the patient that we could continue to monitor him, obtain inter-compartment pressures and plan further treatment based upon those results or proceed with a fasciotomy the posterior thigh today to definitively treat the hematoma and potential for compartment syndrome. The patient has requested we proceed with fasciotomy which I recommend and agree with his decision. He has signed informed consent for the surgery. He is aware of the surgical procedure as well as the potential risks and complications including but not limited to bleeding, infection, nerve injury and the potential for further surgery which could include wound closure or even skin grafting. We will proceed with surgery today when operating time is available. 519 2019. Patient is postop day #1 right posterior thigh fasciotomy and evacuation of hamstring hematoma. Patient is still having some pain but is improved. Denies neurovascular complaints. Vital signs are stable. Patient is afebrile. Dressings have been changed. Drainage is anticipated. Hemoglobin is relatively stable at 8.5. Platelets are mildly diminished at 135. White blood cell count is normal. Impression: POD #1 right posterior thigh fasciotomy and evacuation of hematoma Recommendations: Continue with dressing changes as necessary. Monitor hemoglobin and platelet count. Encourage range of motion and activity as tolerated. Puzzled as to the markedly elevated pro time and a PTT with the use of Xarelto. Consideration for intrinsic liver pathology. Need to reconsider the use of Xarelto are released at that dose that he had been on. Orthopedic status is stable. Objective Vital signs: Vital Signs Temp Pulse Resp BP Pulse Ox 12/10/18 11:40 97.9 F 63 15 106/68 99 12/10/18 07:26 98.1 F 64 17 102/63 93 12/10/18 02:47 98.1 F 53 15 96/62 94 12/09/18 22:10 97.9 F 60 16 90/58 95 12/09/18 20:30 64 100/58 97 12/09/18 19:20 64 102/57 100 12/09/18 18:49 98.1 F 57 18 95/65 99 12/09/18 18:28 99.1 F 63 14 90/54 100 12/09/18 18:18 64 14 97/55 99 12/09/18 18:08 60 18 91/55 97 12/09/18 17:58 99 F 64 14 88/55 98 12/09/18 16:59 70 96/65 99 12/09/18 16:40 75 104/73 99 12/09/18 14:45 98.2 F 82 18 112/72 95 12/09/18 14:13 98.1 F 80 18 120/76 96 Intake and Output 12/09/18 12/10/18 12/10/18 23:59 07:59 15:59 Intake Total 260 / 1860 60 / 550 490 / 550 Output Total 100 / 700 300 / 300 Balance 160 / 1160 -240 / 250 490 / 250 Intake: IV Fluids 60 / 70 10 70 Ancef 1,000 MG In Water for inj . (sterile) 10 ML @ 200 mls/hr IVP Q8H ASHLEY Rx#:[id number] Ofirmev 1,000 mg/100 ml 500 mg 50 / 50 In 50 ml @ 200 mls/hr IVPB ONCE ONE Rx#:[id number] Ancef Syringe 2,000 MG/20 ML 2, 20 / 20 000 mg In 20 ml @ 200 mls/hr IVPB PREOP ONE Rx#:[id number] Oral 240 / 600 480 / 480 Output: Urine 300 / 300 Estimated Blood Loss 100 / 100 Other: Meal Dinner Lunch Percent of Meal Consumed 60% 50% Weight 99.9 kg Blood Glucose* 119 128 139 Patient Weight 12/10/18 23:59 Weight 99.9 kg - Labs CBC & BMP: 12/10/18 12:40 12/10/18 05:51 Labs: Abnormal lab results RBC 2.67 M/mcL (4.19-5.50) L 12/10/18 05:51 Hgb 8.5 g/dL (12.9-16.9) L 12/10/18 12:40 Hct 26.4 % (37.5-50.1) L 12/10/18 12:40 RDW 18.5 % (11.5-14.5) H 12/10/18 05:51 Plt Count 135 K/mcL (140-400) L 12/10/18 05:51 PT 22.6 Seconds (9.4-12.1) H 12/09/18 20:16 INR 4.4 H* 12/08/18 07:28 APTT 46.4 Seconds (26.0-36.0) H 12/08/18 07:28 2244 ng/mLFEU (0-500) H 12/08/18 04:20 Potassium 3.4 mEq/L (3.5-5.1) L 12/09/18 06:26 Glucose 128 mg/dL (70-105) H 12/10/18 05:51 POC Glucose 119 mg/dL (70-99) H 12/09/18 19:41 Calcium 8.3 mg/dL (8.6-10.3) L 12/10/18 05:51 Consult Discharge Plan - Plan Referrals: Ramu Yousif MD [Primary Care Provider] -
[2018-12-10] MEDS ORDERED: *HR* OxyCODONE/APAP 5/325 TABLET PO PRN (16:35)
[2018-12-10] MEDS ORDERED: Acetaminophen 325 MG TABLET PO PRN (16:35)
[2018-12-10] MEDS: (Umeclidinium Bromide [Incruse Ellipta] 1 PUFF) PO SCH (17:11)
[2018-12-10] MEDS: Latanoprost 2.5 ML BOTTLE BOTH EYES SCH (20:29)
[2018-12-11] MEDS: ceFAZolin 1,000 MG in Water for inj. (sterile) 20 ML 10 ML IVP SCH ×3 (00:24→17:49)
[2018-12-11 05:02] LABS: Basophils % 0.4 %; Eosinophils # 0.2 K/mcL (0.0-0.6); Eosinophils % 2.8 %; Hematocrit 23.5 % (37.5-50.1); Hemoglobin 7.6 g/dL (12.9-16.9); Immature Granulocytes % 0.3 % (0-4); Lymphocytes # 0.8 K/mcL (0.6-4.6); Lymphocytes % 11.3 %; Mean Corpuscular HGB Conc 32.3 g/dL (31.6-35.5); Mean Corpuscular Hemoglobin 29.7 pg (28.0-33.3); Mean Corpuscular Volume 91.8 fL (83.0-100.0); Mean Platelet Volume 10.8 fL (9.4-12.4); Monocytes % 14.3 %; Neutrophils # 4.8 K/mcL (1.6-8.9); Platelet Count 146 K/mcL (140-400); Red Blood Count 2.56 M/mcL (4.19-5.50); Red Cell Distribution Width 18.3 % (11.5-14.5); Segmented Neutrophils % 70.9 %
[2018-12-11] MEDS: Insulin LISPRO 300 UNITS/3 ML VIAL SQ SCH ×4 (09:05→21:00)
[2018-12-11] MEDS: SACUBITRIL/VALSARTAN 49/51 MG TABLET PO SCH ×2 (09:06→20:59)
[2018-12-11] MEDS: Multivit/Ca/Min/Fe/FA 1 TAB TABLET PO SCH (09:06)
[2018-12-11] MEDS: Furosemide 40 MG TABLET PO SCH ×2 (09:07→17:48)
[2018-12-11] MEDS: Metoprolol XL (24 HR) Succ 50 MG TAB.ER.24H PO SCH (09:07)
[2018-12-11] MEDS: Dorzolamide OPTH 10 ML BOTTLE BOTH EYES SCH ×3 (09:08→21:00)
[2018-12-11] MEDS: Metoprolol XL (24 HR) Succ 25 MG TAB.ER.24H PO SCH (12:32)
[2018-12-11] MEDS ORDERED: 0.9 % Sodium Chloride 250 ML ONE (12:44)
[2018-12-11] MEDS ORDERED: 0.9 % Sodium Chloride 250 ML IVC ONE (12:45)
[2018-12-11 12:55] LABS: Hematocrit 26.2 % (37.5-50.1); Hemoglobin 8.4 g/dL (12.9-16.9)
--- NOTE | 2018-12-11 13:18 | Internal Med Progress Note ---
Hospitalist Progress Note - Encounter Date of Encounter: 12/11/18 Time of Encounter: 13:18 - Subjective Interval History: Evaluated patient earlier today. Pain in his right leg has improved. Denies any fevers or chills. No nausea or vomiting. Denies any dizziness or headache. Overall he feels much better. - Exam Vitals: Temp Pulse Resp BP Pulse Ox 97.7 F 71 17 88/49 91 12/11/18 11:43 12/11/18 11:43 12/11/18 11:43 12/11/18 11:43 12/11/18 11:43 Exam: General: Patient is alert, no acute distress, oriented x 3 ENT: Mucous membranes moist Respiratory: Good respiratory effort. Normal breath sounds. No wheezing or crackles. Cardiovascular: Regular rate and rhythm. s1 and s2 normal No clicks, rubs, gallops, or murmurs. No pedal edema Abdomen: Abdomen is soft, nontender. Bowel sounds are present Musculoskeletal: Right thigh surgical wound bandaged. Patient has good pedal pulses bilaterally Skin: warm, dry, intact. Neuro: Alert oriented x 3 normal cranial nerves, no focal deficits - Assessment and Plan (1) Intramuscular hematoma Current Visit: Yes Status: Acute (2) Abnormal coagulation profile Current Visit: Yes Status: Acute (3) Atrial fibrillation Current Visit: Yes Status: Chronic (4) CHF (congestive heart failure) Current Visit: Yes Status: Chronic (5) 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 Current Visit: Yes Status: Chronic (6) HTN (hypertension) Current Visit: Yes Status: Chronic - Summary of Assessment and Plan Summary of Assessment and Plan: Right thigh posterior compartment intramuscular hematoma status post fasciotomy and evacuation of hematoma postop day 2. Patient continues to improve. His blood pressure was low this afternoon but patient is asymptomatic. Will treat with 250 normal saline bolus. Recheck blood pressure after. Hold metoprolol dosage for this afternoon. Hemoglobin levels were low this morning but recheck shows hemoglobin level of 8.4. We will continue to monitor closely. We will order 1 unit PRBC to hold for transfusion in case hemoglobin levels drop again. Follow orthopedic recommendations. Physical therapy. Blood sugars are well controlled. Continue current insulin regimen. - Time Spent with Patient Total time spent is greater than 50% in coordination of care (as documented) at patient's floor/unit and/or counseling patient: Internal Medicine: Result - Labs CBC & Chem 7: 12/11/18 12:41 12/10/18 05:51 Labs: Short CBC 12/11/18 12/11/18 Range/Units 04:08 12:41 WBC 6.8 (4.3-11.1) K/mcL Hgb 7.6 L 8.4 L (12.9-16.9) g/dL Hct 23.5 L 26.2 L (37.5-50.1) % Plt Count 146 (140-400) K/mcL Neutrophils # 4.8 (1.6-8.9) K/mcL - ABG Interpretation ABG results: PT/INR, D-dimer PT 22.6 Seconds (9.4-12.1) H 12/09/18 20:16 2244 ng/mLFEU (0-500) H 12/08/18 04:20 Consult Discharge Plan - Plan Referrals: Ramu Yousif MD [Primary Care Provider] - (3) Atrial fibrillation Qualifiers: Atrial fibrillation type: persistent Qualified Code(s): I48.1 - Persistent at rial fibrillation (4) CHF (congestive heart failure) Qualifiers: Heart failure type: combined systolic and diastolic Heart failure chronicity: acute Qualified Code(s): I50.41 - Acute combined systolic (congestive) and diastolic (congestive) heart failure (5) 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 Qualifiers: 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 type: type 2 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 residential insulin use: without residential use 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 complication status: without comp lication Qualified Code(s): E11.9 - Type 2 diabetes mellitus without compl ications (6) HTN (hypertension) Qualifiers: Hypertension type: essential hypertension Qualified Code(s): I10 - Essential (primary) hypertension
[2018-12-11] MEDS ORDERED: 0.9 % Sodium Chloride 500 ML ONE (14:24)
[2018-12-11] MEDS: (Umeclidinium Bromide [Incruse Ellipta] 1 PUFF) PO SCH (17:51)
--- NOTE | 2018-12-11 19:15 | Orthopedics Progress Note ---
Date of Encounter: 12/11/18 Time of Encounter: 19:11 Subjective Principal diagnosis: Posterior thigh hematoma Interval history: 12/09/2018. Patient is having some pain in the ankle area. Posterior thigh and leg remain painful. No acute change in pain. Vital signs are stable. Patient is afebrile. Neurovascular exam distally remains intact with sensation in the foot intact and EHL and dorsi and plantar flexion of the foot intact. Thigh is more edematous posteriorly. Anterior compartment remain soft. Hemoglobin is down to 9.6. Platelet count remains normal at 163. White count remains normal. Pro-time has dropped to 29.2 with oral vitamin K. Fresh frozen plasma is currently being infused. Impression: Right posterior thigh hematoma secondary to anticoagulation Recommendation: Discussed with the patient that we could continue to monitor him, obtain inter-compartment pressures and plan further treatment based upon those results or proceed with a fasciotomy the posterior thigh today to definitively treat the hematoma and potential for compartment syndrome. The patient has requested we proceed with fasciotomy which I recommend and agree with his decision. He has signed informed consent for the surgery. He is aware of the surgical procedure as well as the potential risks and complications including but not limited to bleeding, infection, nerve injury and the potential for further surgery which could include wound closure or even skin grafting. We will proceed with surgery today when operating time is available. 12/10/2018. Patient is postop day #1 right posterior thigh fasciotomy and evacuation of hamstring hematoma. Patient is still having some pain but is improved. Denies neurovascular complaints. Vital signs are stable. Patient is afebrile. Dressings have been changed. Drainage is anticipated. Hemoglobin is relatively stable at 8.5. Platelets are mildly diminished at 135. White blood cell count is normal. Impression: POD #1 right posterior thigh fasciotomy and evacuation of hematoma Recommendations: Continue with dressing changes as necessary. Monitor hemoglobin and platelet count. Encourage range of motion and activity as tolerated. Puzzled as to the markedly elevated pro time and a PTT with the use of Xarelto. Consideration for intrinsic liver pathology. Need to reconsider the use of Xarelto at least related to the dose that he had been on. Orthopedic status is stable. 12/11/2018. Patient is improved. Pain is improved though still present. No neurovascular complaints. He has been ambulatory. Vital signs are stable. Patient is afebrile. Incision is healthy. Draining serosanguineous fluid as anticipated. Hemoglobin is stable at 8.4. Platelet count is normal at 146. Blood cell count is normal. Impression: Postop day #2 right posterior thigh fasciotomy and evacuation of hematoma, orthopedic status stable Recommendations: Continue with daily and when necessary dressing changes. Ambulate as tolerated. Elevate as much as possible. Patient stable for discharge from an orthopedics point of view. We will need follow-up with me in about 10 days' time. I will be unavailable for the next week. If urgent orthopedic care is needed would request consultation with the on-call orthopedic surgeon. Objective Vital signs: Vital Signs Temp Pulse Resp BP Pulse Ox 12/11/18 17:27 97.9 F 60 16 105/65 95 12/11/18 15:07 97.4 F L 58 16 112/72 98 12/11/18 15:00 98.1 F 58 18 97/61 97 12/11/18 14:45 97.8 F 56 18 98/66 98 12/11/18 11:43 97.7 F 71 17 88/49 91 12/11/18 08:22 97.5 F L 65 18 109/72 98 12/11/18 02:25 98.0 F 81 19 152/86 99 12/11/18 00:09 98.0 F 67 14 107/70 91 12/10/18 19:55 98.0 F 56 14 101/65 98 Intake and Output 12/11/18 12/11/18 12/11/18 07:59 15:59 23:59 Intake Total 10 1133 830 / 1133 293 / 1133 Output Total 300 / 300 Balance -290 / 833 830 / 833 293 / 833 Intake: IV Fluids 10 280 260 / 280 10 / 280 0.9 % Sodium Chloride 250 ML @ 250 / 250 500 mls/hr IVC .Q30M ONE Rx#: [id number] Ancef 1,000 MG In Water for inj . (sterile) 10 ML @ 200 mls/hr IVP Q8H [facility] Rx#:[id number] Oral 240 / 240 Blood Product 330 / 613 283 / 613 Rbcs Leuko Poor As-1 Unit 330 / 613 283 / 613 [id number] Output: Urine 300 / 300 Other: Meal Breakfast Percent of Meal Consumed 50% Blood Glucose* 142 93 Incision: draining - Labs CBC & BMP: 12/11/18 12:41 12/10/18 05:51 Labs: Abnormal lab results RBC 2.56 M/mcL (4.19-5.50) L 12/11/18 04:08 Hgb 8.4 g/dL (12.9-16.9) L 12/11/18 12:41 Hct 26.2 % (37.5-50.1) L 12/11/18 12:41 RDW 18.3 % (11.5-14.5) H 12/11/18 04:08 Plt Count 135 K/mcL (140-400) L 12/10/18 05:51 PT 22.6 Seconds (9.4-12.1) H 12/09/18 20:16 INR 4.4 H* 12/08/18 07:28 APTT 46.4 Seconds (26.0-36.0) H 12/08/18 07:28 2244 ng/mLFEU (0-500) H 12/08/18 04:20 Potassium 3.4 mEq/L (3.5-5.1) L 12/09/18 06:26 Glucose 128 mg/dL (70-105) H 12/10/18 05:51 POC Glucose 151 mg/dL (70-99) H 12/10/18 16:52 Calcium 8.3 mg/dL (8.6-10.3) L 12/10/18 05:51 Crossmatch See Detail 12/09/18 09:21 Consult Discharge Plan - Plan Additional Instructions: Home Health has been set up through [facility]. They will contact you with a date and time for admission. If you need to contact them for any reason please call #[phone] or #[phone]. Referrals: Ramu Yousif MD [Primary Care Provider] -
[2018-12-11] MEDS: Latanoprost 2.5 ML BOTTLE BOTH EYES SCH (21:01)
[2018-12-12] MEDS: ceFAZolin 1,000 MG in Water for inj. (sterile) 20 ML 10 ML IVP SCH ×2 (01:09→09:11)
[2018-12-12 05:44] LABS: Basophils % 0.6 %; Eosinophils # 0.3 K/mcL (0.0-0.6); Hematocrit 26.5 % (37.5-50.1); Hemoglobin 8.5 g/dL (12.9-16.9); Immature Granulocytes % 0.4 % (0-4); Lymphocytes # 0.7 K/mcL (0.6-4.6); Lymphocytes % 12.4 %; Mean Corpuscular HGB Conc 32.1 g/dL (31.6-35.5); Mean Corpuscular Hemoglobin 29.9 pg (28.0-33.3); Mean Corpuscular Volume 93.3 fL (83.0-100.0); Mean Platelet Volume 10.9 fL (9.4-12.4); Monocytes # 0.6 K/mcL (0.0-1.3); Monocytes % 11.6 %; Neutrophils # 3.7 K/mcL (1.6-8.9); Platelet Count 171 K/mcL (140-400); Red Blood Count 2.84 M/mcL (4.19-5.50); Red Cell Distribution Width 17.7 % (11.5-14.5)
[2018-12-12] MEDS: Insulin LISPRO 300 UNITS/3 ML VIAL SQ SCH ×2 (09:09→11:57)
[2018-12-12] MEDS: Furosemide 40 MG TABLET PO SCH (09:10)
[2018-12-12] MEDS: Multivit/Ca/Min/Fe/FA 1 TAB TABLET PO SCH (09:10)
[2018-12-12] MEDS: Metoprolol XL (24 HR) Succ 50 MG TAB.ER.24H PO SCH (09:11)
[2018-12-12] MEDS: SACUBITRIL/VALSARTAN 49/51 MG TABLET PO SCH (09:11)
[2018-12-12] MEDS: Dorzolamide OPTH 10 ML BOTTLE BOTH EYES SCH (09:12)
--- NOTE | 2018-12-12 10:58 | Discharge Summary ---
- NOTES TO OUTPATIENT PROVIDER Notes to Outpatient Provider: Patient hospitalized here after developing intramuscular hematoma involving the posterior right compartment. He was monitored for possible developing compartment syndrome. He was then evaluated by orthopedics and taken for surgery and underwent fasciotomy and evacuation of hematoma. Since then his been recovering well. His hemoglobin levels did go down to 7.6 and he received 1 unit PRBC transfusion. He is being cleared for discharge from an orthopedic standpoint. He will be discharged with home health today. He will follow up with orthopedics for further management. Patient was on Xarelto for atrial fibrillation. This medication has now been held in view of his acute hematoma. He will follow up with cardiology for further recommendations. Date of Encounter: 12/12/18 Time of Encounter: 09:00 - Discharge Diagnosis (1) Intramuscular hematoma Priority: Primary Status: Acute (2) Abnormal coagulation profile Priority: Secondary Status: Acute (3) Atrial fibrillation Priority: Secondary Status: Chronic Qualifiers: Atrial fibrillation type: persistent Qualified Code(s): I48.1 - Persistent atrial fibrillation (4) CHF (congestive heart failure) Priority: Secondary Status: Chronic Qualifiers: Heart failure type: combined systolic and diastolic Heart failure chronicity: acute Qualified Code(s): I50.41 - Acute combined systolic (congestive) and diastolic (congestive) heart failure (5) 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 Priority: Secondary Status: Chronic Qualifiers: 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 type: type 2 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 intermediate insulin use: without intermediate use 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 complication status: without complication Qualified Code(s): E11.9 - Type 2 diabetes mellitus without complications (6) HTN (hypertension) Priority: Secondary Status: Chronic Qualifiers: Hypertension type: essential hypertension Qualified Code(s): I10 - Essential (primary) hypertension Hospital course: Mr. Palafox is a 73 year old male Patient with history of atrial fibrillation on Xarelto, congestive heart failure, COPD, diabetes who was hospitalized here after developing a spontaneous intramuscular hematoma involving the posterior right compartment. He was monitored for possible developing compartment syndrome. He was then evaluated by orthopedics and taken for surgery and underwent fasciotomy and evacuation of hematoma. Since then his been recovering well. His hemoglobin levels did go down to 7.6 and he received 1 unit PRBC transfusion. He is being cleared for discharge from an orthopedic standpoint. He will be discharged with home health today. He will follow up with orthopedics for further management. Patient was on Xarelto for atrial fi brillation. This medication has now been held in view of his acute hematoma. He will follow up with cardiology for further recommendations. He will follow up with orthopedics in 1-2 weeks. Discharge discussed with: patient - Time Spent with Patient Total time spent providing and/or coordinating discharge services: Time spent: Less than 30 minutes (20 min) - Discharge Medications Prescriptions: Continued Brimonidine Tartrate [Alphagan P] 1 drop BOTH EYES TID Bimatoprost [Lumigan] 1 drop BOTH EYES HS Metoprolol XL (24 HR) Succ [Toprol Xl] 50 mg PO QAM Potassium Chloride [Klor-Con 10] 10 meq PO 1200 Sacubitril/Valsartan 49/51 mg [Entresto 49 mg-51 mg Tablet] 1 tab PO BID #60 tablet Tiotropium [place] [Spiriva Respimat] 4 gm IH DAILY PRN PRN Reason: BREATHING Albuterol Sulfate [Ventolin Hfa] 1 puff PO Q4H PRN PRN Reason: Shortness Of Breath Allopurinol [Zyloprim 100 MG] 100 mg PO BID Aspirin [Lo-Dose Aspirin EC] 81 mg PO QAM Dorzolamide [Trusopt] 1 drop BOTH EYES TID Furosemide [Lasix] 40 mg PO BID Metformin HCl [Glucophage] 1,000 mg PO BID Metoprolol Succinate [Toprol Xl] 25 mg PO 1200 Multivitamin [Daily Multiple Vitamin] 1 tab PO QAM Simvastatin [Zocor] 20 mg PO HS Umeclidinium [place] [Incruse Ellipta] 1 puff PO QPM Discontinued Rivaroxaban [Xarelto] 20 mg PO QPM Home Medications: Bimatoprost [Lumigan] 1 drop BOTH EYES HS 05/01/15 [History] Brimonidine Tartrate [Alphagan P] 1 drop BOTH EYES TID 05/01/15 [History] Metoprolol XL (24 HR) Succ [Toprol Xl] 50 mg PO QAM 07/21/15 [History] Potassium Chloride [Klor-Con 10] 10 meq PO 1200 09/20/17 [History] Sacubitril/Valsartan 49/51 mg [Entresto 49 mg-51 mg Tablet] 1 tab PO BID #60 tablet 08/31/18 [Rx] Tiotropium [place] [Spiriva Respimat] 4 gm IH DAILY PRN 11/03/18 [History] Albuterol Sulfate [Ventolin Hfa] 1 puff PO Q4H PRN 12/08/18 [History] Allopurinol [Zyloprim 100 MG] 100 mg PO BID 12/08/18 [History] Aspirin [Lo-Dose Aspirin EC] 81 mg PO QAM 12/08/18 [History] Dorzolamide [Trusopt] 1 drop BOTH EYES TID 12/08/18 [History] Furosemide [Lasix] 40 mg PO BID 12/08/18 [History] Metformin HCl [Glucophage] 1,000 mg PO BID 12/08/18 [History] Metoprolol Succinate [Toprol Xl] 25 mg PO 1200 12/08/18 [History] Multivitamin [Daily Multiple Vitamin] 1 tab PO QAM 12/08/18 [History] Simvastatin [Zocor] 20 mg PO HS 12/08/18 [History] Umeclidinium [place] [Incruse Ellipta] 1 puff PO QPM 12/08/18 [History] Allergies/Adverse Reactions: Allergy/AdvReac Type Severity Reaction Status Date / Time promethazine [From Phenergan] Allergy Intermediate Rash Verified 12/08/18 11:50 Date of admission: 12/09/18 20:33 Primary care physician: Ramu Yousif MD Consults: 12/08/18 07:00 Consult to Orthopedic Surgery [CONS] Stat Consulting Provider: Eder Napier Reason for Consult: Posterior leg hematomas Time Notified: 07:00 Call Completed: No 12/09/18 18:25 Consult to Occupational Therapy [CONS] Routine Comment: Evaluate, develop and implement POC Reason for Consult: adl Does patient have active BEDREST order?: No Is patient medically & hemodynamically stable?: Yes Consult to Physical Therapy [CONS] Routine Comment: Evaluate, develop and implement POC Reason for Consult: ambulation Does patient have active BEDREST order?: No Is patient medically & hemodynamically stable?: Yes Consult to Health Information Clerk [CONS] Routine Reason for SW Consult: dc Discharging clinician: Jose Payne Anticipated date of discharge: 12/12/18 - Constitutional Vitals: Temp Pulse Resp BP Pulse Ox 97.9 F 62 17 101/65 97 12/12/18 07:24 05/21/19 07:24 12/12/18 07:24 12/12/18 07:24 12/12/18 07:24 General appearance: Present: cooperative, A&O X 3, pleasant, answers questions appropriately Exam: General: Patient is alert, no acute distress, oriented x 3 ENT: Mucous membranes moist Respiratory: Good respiratory effort. Normal breath sounds. No wheezing or crackles. Cardiovascular: Regular rate and rhythm. s1 and s2 normal No clicks, rubs, gallops, or murmurs. No pedal edema Abdomen: Abdomen is soft, nontender. Bowel sounds are present Musculoskeletal: Right thigh bandaged. Swelling appears to be improving. Skin: warm, dry, intact. Neuro: Alert oriented x 3 normal cranial nerves, no focal deficits - Patient Status Disposition: Home Health Service Condition: Fair Functional capacity at discharge: uses cane/walker Overall status at discharge: patient is progressing back to baseline - Discharge Instructions Instructions: Atrial Fibrillation (DC) Follow Up With: Ramu Yuosif MD [Primary Care Provider] - (In 1-2 weeks) Eder Napier DO [Non-Partnered Physician] - (In 1 week to 10 days.) Additional Instructions: Home Health has been set up through [facility]. They will contact you with a date and time for admission. If you need to contact them for any reason please call #[phone] or #[phone]. - Diet and Activity Activity: as per physical therapy Diet: diabetic diet, low fat, low cholesterol, low salt diet
[2018-12-12 11:31] VITALS: BP 95/58
--- NOTE | 2018-12-12 11:31 | Physician Discharge Referral ---
Home Health/Hosp Referral Info Transfer to: Home Health Provider in Charge Post Discharge: PCP - Diagnosis (1) Intramuscular hematoma Priority: Primary Status: Acute (2) Abnormal coagulation profile Priority: Secondary Status: Acute (3) Atrial fibrillation Priority: Secondary Status: Chronic (4) CHF (congestive heart failure) Priority: Secondary Status: Chronic (5) 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 Priority: Secondary Status: Chronic (6) HTN (hypertension) Priority: Secondary Status: Chronic - Respiratory Orders Smoking Cessation: Smoking cessation has been advised. For more information, call the [place] Tobacco Quit Line at 1-409-ALIP-NOW. - Diet/Nutrition Diet/Nutrition Orders: Cardiac, No Concentrated Sweets - Activity Activity Orders: Walker - Services Needed Following services are medically necessary services: Nursing, Physical Therapy, Occupational Therapy - Transfer Medications Prescriptions: OxyCODONE/APAP 5/325 [Percocet 5/325 MG] 1 each PO Q6HR PRN 5 Days #14 tablet PRN Reason: Moderate Pain Home Medications: Bimatoprost [Lumigan] 1 drop BOTH EYES HS 05/01/15 [History] Brimonidine Tartrate [Alphagan P] 1 drop BOTH EYES TID 05/01/15 [History] Metoprolol XL (24 HR) Succ [Toprol Xl] 50 mg PO QAM 07/21/15 [History] Potassium Chloride [Klor-Con 10] 10 meq PO 1200 09/20/17 [History] Sacubitril/Valsartan 49/51 mg [Entresto 49 mg-51 mg Tablet] 1 tab PO BID #60 tablet 08/31/18 [Rx] Tiotropium [place] [Spiriva Respimat] 4 gm IH DAILY PRN 11/03/18 [History] Albuterol Sulfate [Ventolin Hfa] 1 puff PO Q4H PRN 12/08/18 [History] Allopurinol [Zyloprim 100 MG] 100 mg PO BID 12/08/18 [History] Aspirin [Lo-Dose Aspirin EC] 81 mg PO QAM 12/08/18 [History] Dorzolamide [Trusopt] 1 drop BOTH EYES TID 12/08/18 [History] Furosemide [Lasix] 40 mg PO BID 12/08/18 [History] Metformin HCl [Glucophage] 1,000 mg PO BID 12/08/18 [History] Metoprolol Succinate [Toprol Xl] 25 mg PO 1200 12/08/18 [History] Multivitamin [Daily Multiple Vitamin] 1 tab PO QAM 12/08/18 [History] Simvastatin [Zocor] 20 mg PO HS 12/08/18 [History] Umeclidinium [place] [Incruse Ellipta] 1 puff PO QPM 12/08/18 [History] OxyCODONE/APAP 5/325 [Percocet 5/325 MG] 1 each PO Q6HR PRN 5 Days #14 tablet 12/12/18 [Rx] Allergies/Adverse Reactions: Allergy/AdvReac Type Severity Reaction Status Date / Time promethazine [From Phenergan] Allergy Intermediate Rash Verified 12/08/18 11:50 Certification: Further, I certify that my clinical findings support that this patient is homebound (i.e. absences from home require considerable and taxing effort and are for medical reasons or jehovah's witness services or infrequently or short duration when for other reasons) because: Homebound Reason: Post-surgery restriction and or conditions limit ability to leave home Attestation: My signature below is to certify that this patient is under my care and that I, or nurse practitioner, or a physician's assistant gm of content & delivery working with me, has a [id number] encounter with this patient.
== END 2018-12-12 14:08 | disposition home health service (06) | DRG 579 ==
LOC: EMEROOARM 03:33 → 3BNU 03:33 → SUATTDRO 07:57 → 3BNU 08:43
PROVIDERS: ADMIT Family Medicine; ATTEND Internal Medicine
PROC: ORTFASC (2018-12-09 15:30)

== ENCOUNTER 2021-06-29 02:21 | Observation (INO) ==
[2021-06-29] MEDS ORDERED: Aspirin 81 MG TAB.CHEW PO ONE (02:59)
[2021-06-29 03:05] LABS: Basophils # 0.1 K/mcL (0.0-0.2); Basophils % 0.7 %; Eosinophils # 0.3 K/mcL (0.0-0.6); Eosinophils % 3.1 %; Hematocrit 40.6 % (37.5-50.1); Immature Granulocytes % 0.3 % (0-4); Lymphocytes # 1.6 K/mcL (0.6-4.6); Lymphocytes % 18.2 %; Mean Corpuscular Hemoglobin 31.6 pg (28.0-33.3); Mean Corpuscular Volume 98.8 fL (83.0-100.0); Mean Platelet Volume 11.9 fL (9.4-12.4); Monocytes # 0.9 K/mcL (0.0-1.3); Monocytes % 9.5 %; Neutrophils # 6.1 K/mcL (1.6-8.9); Platelet Count 169 K/mcL (140-400); Red Blood Count 4.11 M/mcL (4.19-5.50); Red Cell Distribution Width 14.9 % (11.5-14.5); Segmented Neutrophils % 68.2 %
[2021-06-29] MEDS ORDERED: 0.9 % Sodium Chloride 1,000 ML IVC ONE (03:05)
[2021-06-29 03:13] LABS: INR 1.9; Prothrombin Time 20.6 Seconds (9.4-12.1)
[2021-06-29 03:16] LABS: Activated Partial Thrombo Time 43.9 Seconds (26.0-36.0)
[2021-06-29 03:23] LABS: BUN/Creatinine Ratio 23 (6-26); Blood Urea Nitrogen 43 mg/dL (8-23); Calcium 9.2 mg/dL (8.6-10.3); Carbon Dioxide 27 mEq/L (23-29); Chloride 103 mEq/L (98-107); Glucose 102 mg/dL (70-105); Osmolality,Calculated 299 (280-300); Sodium 139 mEq/L (136-145); eGFR For African Americans 44 (> 60); eGFR For Non-African Americans 36 (> 60)
[2021-06-29 03:25] LABS: Troponin I < 0.03 ng/mL (< 0.04)
[2021-06-29] MEDS ORDERED: Morphine Sulfate 2 MG/ML SYRINGE IVP ONE (03:59)
[2021-06-29] MEDS ORDERED: Nitroglycerin 0.4 MG TAB.SUBL SL SCH (04:00)
[2021-06-29] MEDS ORDERED: Ondansetron 4 MG/2 ML VIAL IVP PRN (05:10)
[2021-06-29] MEDS ORDERED: Naloxone 0.4 MG/ML INJ IVP PRN (05:10)
[2021-06-29] MEDS ORDERED: Dextrose Gel 15 GM/37.5 ML TUBE PO PRN ×2 (05:46)
[2021-06-29] MEDS ORDERED: D5% in Water 1,000 ML IVC PRN (05:46)
[2021-06-29] MEDS ORDERED: *HR* Dextrose 50 % in Water (Syg) 50 ML SYRINGE IVP PRN (05:46)
[2021-06-29] MEDS ORDERED: Regadenoson 0.4 MG/5 ML SYRINGE IVP ONE ×2 (06:39→11:24)
[2021-06-29] MEDS: Insulin LISPRO 300 UNITS/3 ML VIAL SUBQ SCH ×2 (07:55→13:20)
[2021-06-29] MEDS ORDERED: Aspirin 81 MG TAB.CHEW PO SCH (09:00)
[2021-06-29] MEDS ORDERED: Dorzolamide OPTH 10 ML BOTTLE BOTH EYES SCH (09:00)
[2021-06-29 12:46] VITALS: BP 108/72; PULSE 67; TEMP 97.6; O2SAT 99
== END 2021-06-29 14:24 | disposition home or self-care (01) ==
LOC: 3BNU 02:21 → EMEROOARM 02:21 → SUATTDRO 04:47 → 3BNU 05:25
PROVIDERS: ADMIT Internal Medicine; ATTEND Internal Medicine